=== PATIENT | male | born 1955 | race Caucasian/White ===

== ENCOUNTER 2018-04-19 19:41 | Inpatient (IN) | payer MEDICARE, OTHER ==
[~2018-04-19] VITALS: Ht 185.4 cm; Wt 78.0 kg
[~2018-04-19 19:41] MED LIST: ASPIR 8181 MG ORAL; COREG3.125 MG ORAL; PLAVIX75 MG ORAL; SIMVASTATIN5 MG ORAL
[2018-04-19] MEDS ORDERED: Sodium Chloride 500ML 500 ML IV ONE (19:44)
[2018-04-19] MEDS ORDERED: CELEXA20 MG ORAL (19:47)
[2018-04-19] MEDS ORDERED: BACLOFEN10 MG ORAL (19:47)
[2018-04-19] MEDS ORDERED: HYDROXYZINE PAM50 MG PO (19:47)
[2018-04-19] MEDS ORDERED: ATORVASTATIN CA80 MG ORAL (19:47)
[2018-04-19] MEDS ORDERED: RISPERDAL2 MG ORAL (19:47)
--- NOTE | 2018-04-19 19:59 | Emergency Room Report ---
History of Present Illness General Chief Complaint: Chest Pain Source: Patient Present Illness HPI Patient present with complaints of chest pain midsternal Started approximately 6:00 in the evening about 2 hours prior to arrival Patient reports he was sitting watching TV when the pain came on 7 out of 10 Not much difference or improvement with nitroglycerin in route Patient describes having an angiogram catheterization, 2 years ago and reports that he had blockages however the procedure had to be aborted as they were unable to open the arteries Complains of mild nausea denies any vomiting or diarrhea denies any back or flank pain Denies any other trauma Allergies: Coded Allergies: CHLORPROMAZINE (Verified Allergy, Mild, 04/19/18) HALOPERIDOL (Verified Allergy, Mild, 04/19/18) LIVER EXTRACT (Verified Allergy, Mild, 04/19/18) PENICILLINS (Unverified Allergy, Unknown, 08/05/16) Patient History Past Medical History: see triage record Pertinent Family History: none Reviewed Nursing Documentation: PMH: Agreed; PSxH: Agreed Nursing Documentation-PMH Hx Cardiac Problems: Yes - BYPASS Hx Hypertension: Yes Hx Cancer: No Hx Gastrointestinal Problems: No Hx Seizures: Yes Review of Systems All Other Systems: negative except mentioned in HPI Physical Exam Vital Signs Date Time Temp Pulse Resp B/P (MAP) Pulse Ox O2 Delivery O2 Flow Rate FiO2 04/19/18 19:35 98.2 62 16 85/52 97 Room Air 98.2 Sp02 EP Interpretation: reviewed, normal General Appearance: well appearing, no apparent distress Head: normocephalic, atraumatic Eyes: bilateral eye PERRL, bilateral eye EOMI ENT: hearing grossly normal, normal pharynx, TMs + canals normal, uvula midline Neck: full range of motion, supple, no meningismus, no bony tend Respiratory: lungs clear, normal breath sounds, no rhonchi, no respiratory distress, no retraction, no accessory muscle use Cardiovascular #1: normal peripheral pulses, regular rate, rhythm, no edema, no gallop, no JVD, no murmur Gastrointestinal: normal bowel sounds, non tender, soft, no mass, no organomegaly, non-distended, no guarding, no hernia, no pulsatile mass, no rebound Genitourinary: no CVA tenderness Musculoskeletal: normal inspection Neurologic: oriented x3, responsive, porcelain enameling supervisor III-XII nml as tested, motor strength/ tone normal, sensory intact Psychiatric: mood/affect normal Skin: normal color, no rash, warm/dry, palpation normal Lymphatic: normal inspection, no adenopathy Medical Decision Making Diagnostic Impression: Primary Impression: ACS (acute coronary syndrome) ER Course Patient is a fairly complex patient with multiple differential to consideration including but not limited to cardiac cardiopulmonary and vascular emergencies Patient's initial troponin level is negative EKG does not show any obvious acute ST elevations given the patient's comorbidities past medical history And the presentation patient requiring further admission and inpatient care Labs Test 04/19/18 20:00 04/19/18 21:00 White Blood Count 8.4 K/UL (4.8-10.8) Red Blood Count 4.68 M/UL (4.70-6.10) Hemoglobin 15.4 G/DL (14.2-18.0) Hematocrit 45.3 % (42.0-52.0) Mean Corpuscular Volume 97 FL (80-99) Mean Corpuscular Hemoglobin 32.9 PG (27.0-31.0) Mean Corpuscular Hemoglobin Concent 34.0 G/DL (32.0-36.0) Red Cell Distribution Width 12.8 % (11.6-14.8) Platelet Count 193 K/UL (150-450) Mean Platelet Volume 7.5 FL (6.5-10.1) Neutrophils (%) (Auto) 50.8 % (45.0-75.0) Lymphocytes (%) (Auto) 32.9 % (20.0-45.0) Monocytes (%) (Auto) 8.2 % (1.0-10.0) Eosinophils (%) (Auto) 6.6 % (0.0-3.0) Basophils (%) (Auto) 1.5 % (0.0-2.0) Prothrombin Time 10.7 SEC (9.30-11.50) Prothromb Time International Ratio 1.0 (0.9-1.1) Activated Partial Thromboplast Time 32 SEC (23-33) Sodium Level 134 MMOL/L (136-145) Potassium Level 4.0 MMOL/L (3.5-5.1) Chloride Level 99 MMOL/L (98-107) Carbon Dioxide Level 26 MMOL/L (21-32) Anion Gap 9 mmol/L (5-15) Blood Urea Nitrogen 16 mg/dL (7-18) Creatinine 1.0 MG/DL (0.55-1.30) Estimat Glomerular Filtration Rate > 60 mL/min (>60) Glucose Level 95 MG/DL (74-106) Calcium Level 8.7 MG/DL (8.5-10.1) Total Bilirubin 0.6 MG/DL (0.2-1.0) Aspartate Amino Transf (AST/SGOT) 18 U/L (15-37) Alanine Aminotransferase (ALT/SGPT) 31 U/L (12-78) Alkaline Phosphatase 111 U/L (46-116) Total Creatine Kinase 116 U/L (26-308) Creatine Kinase MB 2.2 NG/ML (0.0-3.6) Creatine Kinase MB Relative Index 1.8 Troponin I 0.000 ng/mL (0.000-0.056) Pro-B-Type Natriuretic Peptide 167 pg/mL (0-125) Total Protein 7.0 G/DL (6.4-8.2) Albumin 3.6 G/DL (3.4-5.0) Globulin 3.4 g/dL Albumin/Globulin Ratio 1.1 (1.0-2.7) Lipase 183 U/L (73-393) Urine Opiates Screen Negative (NEGATIVE) Urine Barbiturates Screen Negative (NEGATIVE) Phencyclidine (PCP) Screen Negative (NEGATIVE) Urine Amphetamines Screen Negative (NEGATIVE) Urine Benzodiazepines Screen Negative (NEGATIVE) Urine Cocaine Screen Negative (NEGATIVE) Urine Marijuana (THC) Screen Positive (NEGATIVE) EKG Diagnostic Results Rate: normal Rhythm: NSR ST Segments: no acute changes Rhythm Strip Diag. Results EP Interpretation: yes Rate: 78 Rhythm: NSR, no PVC's, no ectopy Chest X-Ray Diagnostic Results Chest X-Ray Diagnostic Results : Chest X-Ray Ordered: Yes # of Views/Limited/Complete: 1 View Indication: Chest Pain EP Interpretation: Yes Interpretation: no consolidation, no effusion, no pneumothorax Impression: No acute disease Electronically Signed by: Ángela Bonilla DO Last Vital Signs Date Time Temp Pulse Resp B/P (MAP) Pulse Ox O2 Delivery O2 Flow Rate FiO2 04/19/18 19:35 98.2 62 16 85/52 97 Room Air 98.2 Status: improved Disposition: ADMITTED INPATIENT Condition: Serious Ángela Bonilla DO Apr 19, 2018 19:59
[2018-04-19] MEDS ORDERED: Morphine Sulfate 4mg/ml Inj IVP ONE (20:00)
[2018-04-19 20:16] LABS: BASOPHILS % (AUTO) 1.5 % (0.0-2.0); EOSINOPHILS % (AUTO) 6.6 % (0.0-3.0); HEMATOCRIT 45.3 % (42.0-52.0); HEMOGLOBIN 15.4 G/DL (14.2-18.0); LYMPHOCYTES % (AUTO) 32.9 % (20.0-45.0); MEAN CORPUSCULAR VOLUME 97 FL (80-99); MONOCYTES % (AUTO) 8.2 % (1.0-10.0); NEUTROPHILS % (AUTO) 50.8 % (45.0-75.0); PLATELET COUNT 193 K/UL (150-450); RED BLOOD COUNT 4.68 M/UL (4.70-6.10); RED CELL DISTRIBUTION WIDTH 12.8 % (11.6-14.8); WHITE BLOOD COUNT 8.4 K/UL (4.8-10.8)
[2018-04-19 20:48] LABS: ANION GAP 9 mmol/L (5-15); BLOOD UREA NITROGEN 16 mg/dL (7-18); CALCIUM 8.7 MG/DL (8.5-10.1); CARBON DIOXIDE 26 MMOL/L (21-32); CHLORIDE 99 MMOL/L (98-107); SODIUM 134 MMOL/L (136-145)
[2018-04-19] MEDS ORDERED: ATORVASTATIN CA40 MG ORAL (20:58)
[2018-04-19] MEDS ORDERED: METOPROLOL TART25 MG ORAL (21:03)
[2018-04-19] MEDS ORDERED: GABAPENTIN300 MG ORAL (21:03)
[2018-04-19] MEDS ORDERED: HYTRIN5 MG PO (21:03)
[2018-04-19] MEDS ORDERED: OMEPRAZOLE20 M2 ORAL (21:03)
[2018-04-19] MEDS ORDERED: CITALOPRAM HBR40 M1 ORAL (21:03)
[2018-04-19] MEDS ORDERED: ENTRESTO 24 MG1 EACH PO (21:03)
[2018-04-19] MEDS ORDERED: AMLODIPINE BES2.5 MG ORAL (21:04)
[2018-04-19] MEDS ORDERED: LORazepam Inj 2mg/ml 1ml IV ONE (21:15)
[2018-04-19 21:18] LABS: ALANINE AMINOTRANSFERASE 31 U/L (12-78); ALBUMIN 3.6 G/DL (3.4-5.0); ALBUMIN/GLOBULIN RATIO 1.1 (1.0-2.7); ALKALINE PHOSPHATASE 111 U/L (46-116); ASPARTATE AMINO TRANSFERASE 18 U/L (15-37); BILIRUBIN,TOTAL 0.6 MG/DL (0.2-1.0); CKMB 2.2 NG/ML (0.0-3.6); CREATINE KINASE 116 U/L (26-308)
[2018-04-19 21:40] VITALS: BP 105/59
[2018-04-19] MEDS ORDERED: Albuterol/Ipratropium 3ml neb HHN PRN (22:15)
[2018-04-19] MEDS ORDERED: Miralax 17gm pkt ORAL PRN (22:15)
[2018-04-19] MEDS ORDERED: Ketorolac 30mg Inj IV PRN (22:15)
[2018-04-19] MEDS ORDERED: dilTIAZem HCl 25mg/5ml Inj IV PRN (22:15)
[2018-04-19] MEDS ORDERED: Enalaprilat 2.5mg/2ml Inj IV PRN (22:15)
[2018-04-19 22:45] VITALS: BP 91/56
[2018-04-20] VITALS: BP 88/47
[2018-04-20] MEDS: Morphine Sulfate 4mg/ml Inj IVP PRN ×3 (00:29→16:09)
[2018-04-20 04:00] VITALS: BP 79/40
[2018-04-20 08:00] VITALS: BP 111/53
[2018-04-20] MEDS: Metoprolol 25mg tab ORAL SCH ×2 (09:00→20:41)
[2018-04-20] MEDS: Atorvastatin 80mg tab ORAL SCH (09:14)
[2018-04-20] MEDS: Aspirin Baby 81mg ORAL SCH (09:14)
[2018-04-20] MEDS: Heparin 5000 units/ml inj SUBQ SCH ×2 (09:18→20:54)
[2018-04-20 10:04] LABS: BASOPHILS % (AUTO) 1.1 % (0.0-2.0); EOSINOPHILS % (AUTO) 4.8 % (0.0-3.0); HEMATOCRIT 45.2 % (42.0-52.0); LYMPHOCYTES % (AUTO) 22.2 % (20.0-45.0); MEAN CORPUSCULAR VOLUME 96 FL (80-99); MONOCYTES % (AUTO) 7.2 % (1.0-10.0); NEUTROPHILS % (AUTO) 64.7 % (45.0-75.0); PLATELET COUNT 171 K/UL (150-450); RED BLOOD COUNT 4.69 M/UL (4.70-6.10); RED CELL DISTRIBUTION WIDTH 12.5 % (11.6-14.8); WHITE BLOOD COUNT 8.9 K/UL (4.8-10.8)
[2018-04-20 10:23] LABS: CHOLESTEROL 115 MG/DL (< 200); HDL CHOLESTEROL 40 MG/DL (40-60); TRIGLYCERIDES 49 MG/DL (30-150)
--- NOTE | 2018-04-20 11:57 | Diagnostic Imaging Report ---
Indication: Chest pain Technique: One view of the chest Comparison: 08/04/2016 Findings: There are median sternotomy sutures. Surgical clips are seen in the left hilar region. Heart size is normal. Healed right rib fracture deformity are present, not acute but not evident previously Impression: No acute process
[2018-04-20 12:00] VITALS: BP 92/52
--- NOTE | 2018-04-20 13:14 | Consultation ---
History of Present Illness General Date patient seen: Apr 20, 2018 Chief Complaint: Chest Pain Present Illness HPI 62 year old male with hx of CAD, CABG 20 years ago presented to ER with complaints of chest pain midsternal about 2 hours prior to arrival to ER Patient had angiogram catheterization, 2 years ago and reports that he had blockages however the procedure had to be aborted as they were unable to open the arteries He is admitted to telemetry for further w/u. Allergies: Coded Allergies: CHLORPROMAZINE (Verified Allergy, Mild, 04/19/18) HALOPERIDOL (Verified Allergy, Mild, 04/19/18) LIVER EXTRACT (Verified Allergy, Mild, 04/19/18) PENICILLINS (Unverified Allergy, Unknown, 08/05/16) Medication History Scheduled Amlodipine Besylate* (Amlodipine Besylate*), 2.5 MG ORAL DAILY, (Reported) Aspirin* (Aspir 81*), 81 MG ORAL DAILY, (Reported) Atorvastatin Calcium* (Atorvastatin Calcium*), 40 MG ORAL DAILY, (Reported) Citalopram Hydrobromide* (Citalopram Hbr*), 40 MG ORAL DAILY, (Reported) Clopidogrel Bisulfate* (Plavix*), 75 MG ORAL DAILY, (Reported) Gabapentin* (Gabapentin*), 300 MG ORAL TWICE A DAY, (Reported) Metoprolol Tartrate* (Metoprolol Tartrate*), 25 MG ORAL EVERY 12 HOURS, ( Reported) Omeprazole (Omeprazole), 20 MG ORAL BID, (Reported) Risperidone* (Risperdal*), 2 MG ORAL BID, (Reported) Terazosin HCl (Terazosin HCl), 5 MG PO QHS, (Reported) Miscellaneous Medications Sacubitril/Valsartan (Entresto 24 mg-26 mg Tablet), 1 EACH PO, (Reported) Discontinued Medications Atorvastatin Calcium* (Lipitor*), 80 MG ORAL BEDTIME, (Reported) Discontinued Reason: Prescription changed Baclofen* (Baclofen*), 5 MG ORAL THREE TIMES A DAY, (Reported) Discontinued Reason: Pt stopped taking med Carvedilol (Coreg), Unknown Dose ORAL DAILY, (Reported) Discontinued Reason: Pt stopped taking med Citalopram Hydrobromide* (Celexa*), 20 MG ORAL DAILY, (Reported) Discontinued Reason: Prescription changed Hydroxyzine Pamoate (Hydroxyzine Pamoate), 50 MG PO EVERY 6 HOURS, (Reported) Discontinued Reason: Pt stopped taking med Simvastatin (Zocor), Unknown Dose ORAL BEDTIME, (Reported) Discontinued Reason: Pt stopped taking med Patient History Healthcare decision maker Kit Fierro Resuscitation status Full Code Advanced Directive on File No Past Medical/Surgical History Past Medical/Surgical History: (1) Hx of CABG (2) COPD (chronic obstructive pulmonary disease) (3) CAD (coronary artery disease) Review of Systems All Other Systems: negative except mentioned in HPI Physical Exam General Appearance: WD/WN, no apparent distress, alert Lines, tubes and drains: peripheral HEENT: normocephalic, atraumatic Neck: non-tender, normal alignment Respiratory/Chest: chest wall non-tender, lungs clear, normal breath sounds Breasts: no masses Cardiovascular/Chest: normal peripheral pulses, normal rate, regular rhythm Abdomen: normal bowel sounds, soft, no organomegaly Genitourinary/Rectal: normal genital exam Extremities: normal range of motion Skin Exam: normal pigmentation Last 24 Hour Vital Signs Date Time Temp Pulse Resp B/P (MAP) Pulse Ox O2 Delivery O2 Flow Rate FiO2 04/20/18 12:00 97.5 55 20 92/52 98 Nasal Cannula 2.0 97.5 04/20/18 09:52 97.8 04/20/18 09:22 97.8 04/20/18 09:13 54 111/53 04/20/18 09:00 54 111/53 04/20/18 08:20 89 18 Nasal Cannula 2.0 28 04/20/18 08:00 97.8 54 21 111/53 95 Nasal Cannula 2.0 97.8 04/20/18 08:00 55 04/20/18 04:00 97.3 59 21 79/40 95 Nasal Cannula 2.0 97.3 04/20/18 04:00 52 04/20/18 00:00 50 04/20/18 00:00 97.0 50 19 88/47 97 Nasal Cannula 2.0 97.0 04/19/18 22:45 51 04/19/18 22:45 97.2 51 21 91/56 97 Nasal Cannula 2.0 97.2 04/19/18 22:40 97.1 50 13 105/59 97 Nasal Cannula 2.0 97.1 04/19/18 21:40 97.1 50 13 105/59 97 Nasal Cannula 2.0 97.1 04/19/18 20:35 98.2 04/19/18 20:05 98.2 04/19/18 19:45 62 16 Room Air 04/19/18 19:35 98.2 62 16 85/52 97 Room Air 98.2 Intake and Output 04/19/18 04/20/18 19:00 07:00 Intake Total 500 ml Output Total 110 ml Balance 390 ml Intake IV Total 500 ml Output Urine Total 110 ml # Voids 3 Laboratory Tests Test 04/19/18 20:00 04/19/18 21:00 04/20/18 09:40 White Blood Count 8.4 K/UL (4.8-10.8) 8.9 K/UL (4.8-10.8) Red Blood Count 4.68 M/UL (4.70-6.10) L 4.69 M/UL (4.70-6.10) L Hemoglobin 15.4 G/DL (14.2-18.0) 15.0 G/DL (14.2-18.0) Hematocrit 45.3 % (42.0-52.0) 45.2 % (42.0-52.0) Mean Corpuscular Volume 97 FL (80-99) 96 FL (80-99) Mean Corpuscular Hemoglobin 32.9 PG (27.0-31.0) H 31.9 PG (27.0-31.0) H Mean Corpuscular Hemoglobin Concent 34.0 G/DL (32.0-36.0) 33.1 G/DL (32.0-36.0) Red Cell Distribution Width 12.8 % (11.6-14.8) 12.5 % (11.6-14.8) Platelet Count 193 K/UL (150-450) 171 K/UL (150-450) Mean Platelet Volume 7.5 FL (6.5-10.1) 7.8 FL (6.5-10.1) Neutrophils (%) (Auto) 50.8 % (45.0-75.0) 64.7 % (45.0-75.0) Lymphocytes (%) (Auto) 32.9 % (20.0-45.0) 22.2 % (20.0-45.0) Monocytes (%) (Auto) 8.2 % (1.0-10.0) 7.2 % (1.0-10.0) Eosinophils (%) (Auto) 6.6 % (0.0-3.0) H 4.8 % (0.0-3.0) H Basophils (%) (Auto) 1.5 % (0.0-2.0) 1.1 % (0.0-2.0) Prothrombin Time 10.7 SEC (9.30-11.50) 10.7 SEC (9.30-11.50) Prothromb Time International Ratio 1.0 (0.9-1.1) 1.0 (0.9-1.1) Activated Partial Thromboplast Time 32 SEC (23-33) 31 SEC (23-33) Sodium Level 134 MMOL/L (136-145) L Potassium Level 4.0 MMOL/L (3.5-5.1) Chloride Level 99 MMOL/L (98-107) Carbon Dioxide Level 26 MMOL/L (21-32) Anion Gap 9 mmol/L (5-15) Blood Urea Nitrogen 16 mg/dL (7-18) Creatinine 1.0 MG/DL (0.55-1.30) Estimat Glomerular Filtration Rate > 60 mL/min (>60) Glucose Level 95 MG/DL (74-106) Calcium Level 8.7 MG/DL (8.5-10.1) Total Bilirubin 0.6 MG/DL (0.2-1.0) Aspartate Amino Transf (AST/SGOT) 18 U/L (15-37) Alanine Aminotransferase (ALT/SGPT) 31 U/L (12-78) Alkaline Phosphatase 111 U/L (46-116) Total Creatine Kinase 116 U/L (26-308) Creatine Kinase MB 2.2 NG/ML (0.0-3.6) Creatine Kinase MB Relative Index 1.8 Troponin I 0.000 ng/mL (0.000-0.056) 0.003 ng/mL (0.000-0.056) Pro-B-Type Natriuretic Peptide 167 pg/mL (0-125) H Total Protein 7.0 G/DL (6.4-8.2) Albumin 3.6 G/DL (3.4-5.0) Globulin 3.4 g/dL Albumin/Globulin Ratio 1.1 (1.0-2.7) Lipase 183 U/L (73-393) Urine Opiates Screen Negative (NEGATIVE) Urine Barbiturates Screen Negative (NEGATIVE) Phencyclidine (PCP) Screen Negative (NEGATIVE) Urine Amphetamines Screen Negative (NEGATIVE) Urine Benzodiazepines Screen Negative (NEGATIVE) Urine Cocaine Screen Negative (NEGATIVE) Urine Marijuana (THC) Screen Positive (NEGATIVE) H C-Reactive Protein, Quantitative < 0.4 mg/dL (0.00-0.90) Triglycerides Level 49 MG/DL (30-150) Cholesterol Level 115 MG/DL (< 200) LDL Cholesterol 83 mg/dL (<100) HDL Cholesterol 40 MG/DL (40-60) Cholesterol/HDL Ratio 2.9 (3.3-4.4) L Thyroid Stimulating Hormone (TSH) 3.354 uiU/mL (0.358-3.740) Height (Feet): 6 Height (Inches): 1.00 Weight (Pounds): 172 Medications Current Medications Medications (Trade) Dose Ordered Sig/Michael Route PRN Reason Start Time Stop Time Status Last Admin Dose Admin Acetaminophen (Tylenol) 650 mg Q4H PRN ORAL FEVER 04/19/18 22:15 05/19/18 22:14 Albuterol/ Ipratropium (Albuterol/ Ipratropium) 3 ml EVERY 4 HOURS PRN HHN Shortness of Breath 04/19/18 22:15 04/24/18 22:14 Amlodipine Besylate (Norvasc) 2.5 mg DAILY ORAL 04/20/18 09:00 05/20/18 08:59 04/20/18 09:13 Aspirin (ASA) 162 mg DAILY ORAL 04/20/18 09:00 05/20/18 08:59 04/20/18 09:14 Atorvastatin Calcium (Lipitor) 40 mg DAILY ORAL 04/20/18 09:00 05/20/18 08:59 04/20/18 09:14 Clopidogrel Bisulfate (Plavix) 75 mg DAILY ORAL 04/20/18 09:00 05/20/18 08:59 04/20/18 09:13 Diltiazem HCl (Cardizem) 10 mg EVERY HOUR PRN IV heart rate more than 120, 04/19/18 22:15 05/19/18 22:14 Enalaprilat (Vasotec) 2.5 mg EVERY 6 HOURS PRN IV sbp more than 160 04/19/18 22:15 05/19/18 22:14 Gabapentin (Neurontin) 300 mg TWICE A DAY ORAL 04/20/18 09:00 05/20/18 08:59 04/20/18 09:15 Heparin Sodium (Porcine) (Heparin 5000 units/ml) 5,000 units EVERY 12 HOURS SUBQ 04/20/18 09:00 05/20/18 08:59 04/20/18 09:18 Ketorolac Tromethamine (Toradol 30mg) 30 mg Q6HR PRN IV moderate pain ( 4-6) 04/19/18 22:15 04/24/18 22:14 Metoprolol Tartrate (Lopressor) 25 mg EVERY 12 HOURS ORAL 04/20/18 09:00 05/20/18 08:59 Morphine Sulfate (Morphine Sulfate) 2 mg Q4H PRN IVP severe pain scale 7-10 04/19/18 22:45 04/26/18 22:44 04/20/18 09:22 Nitroglycerin (Ntg) 0.4 mg Q5M PRN SL Prn Chest Pain 04/19/18 22:15 05/19/18 22:14 Ondansetron HCl (Zofran) 4 mg Q6H PRN IVP Nausea & Vomiting 04/19/18 22:15 05/19/18 22:14 Polyethylene Glycol (Miralax) 17 gm DAILYPRN PRN ORAL Constipation 04/19/18 22:15 05/19/18 22:14 Risperidone (RisperDAL) 2 mg BID ORAL 04/20/18 09:00 05/20/18 08:59 04/20/18 09:14 Temazepam (Restoril) 15 mg HSPRN PRN ORAL Insomnia 04/19/18 22:15 04/26/18 22:14 04/20/18 00:53 Terazosin HCl (Hytrin) 5 mg QHS ORAL 04/20/18 21:00 05/20/18 20:59 Assessment/Plan Problem List: (1) Acute chest pain ICD Codes: R07.9 - Chest pain, unspecified SNOMED: 244114284 (2) ACS (acute coronary syndrome) ICD Codes: I24.9 - Acute ischemic heart disease, unspecified SNOMED: 850925583 (3) COPD (chronic obstructive pulmonary disease) ICD Codes: J44.9 - Chronic obstructive pulmonary disease, unspecified SNOMED: 19473626 (4) CAD (coronary artery disease) ICD Codes: I25.10 - Atherosclerotic heart disease of [place] coronary artery without angina pectoris SNOMED: 98866812 (5) Hx of CABG ICD Codes: Z95.1 - Presence of aortocoronary bypass graft SNOMED: 799754455, 558618096 Assessment/Plan serial ekg, torponin, echo cardio evaluation symptomatic treatment Donta Espinoza MD Apr 20, 2018 13:14
[2018-04-20 16:00] VITALS: BP 104/63
--- NOTE | 2018-04-20 17:30 | History and Physical Report ---
DATE OF ADMISSION: 04/19/2018 TIME: 9 a.m. CONSULTANTS: 1. Donta Espinoza M.D. 2. Henry Rubin M.D. CHIEF COMPLAINT: Chest pain. BRIEF HISTORY: The patient is a 62-year-old male from [facility] presents with substernal chest pain, yesterday, sharp, intermittent, radiating to left arm, lasts for several hours, came to [place], diagnosed with the above, admitted to telemetry for further care. Currently, calm, in bed. No complaint. Also he denies any loss of consciousness. Slight nausea. No vomiting. PAST MEDICAL HISTORY: Hypertension. PAST SURGICAL HISTORY: Triple bypass. MEDICATIONS: Hytrin, Norvasc, Lipitor, Plavix, Neurontin, Lopressor, Risperdal, aspirin, heparin, albuterol, nitroglycerin, MiraLAX, Ketoralac, Restoril, Vasotec and diltiazem. ALLERGIES: Penicillin. He is also allergic to chlorpromazine and Haldol and liver extract. SOCIAL HISTORY: Positive smoking. No alcohol. No intravenous drug abuse. FAMILY HISTORY: Noncontributory. PHYSICAL EXAMINATION: GENERAL: Calm in bed, oriented x3, no acute distress. VITAL SIGNS: Temperature 97 degrees, pulse 54, respirations 21, and blood pressure 111/53. CARDIOVASCULAR: No murmur. LUNGS: Distant and clear. ABDOMEN: Bowel sounds positive. Nontender. Nondistended. EXTREMITIES: No cyanosis, clubbing or edema. NEUROLOGIC: The patient moves all extremities, slightly weak. LABORATORY AND DIAGNOSTIC DATA: CBC is normal. BMP shows sodium 134, otherwise BMP is normal. Troponin 0.000 on first one. BNP is 167. INR is 1.0 and PTT is 31. Urine toxicology is positive marijuana. ASSESSMENT: 1. ACS. 2. Hypertension. PLAN: Blood pressure control. Resume home medications. Troponin q.8 h. x3. O2 and pulmonary treatment as needed. Dr. Espinoza and Dr. Rubin to follow. Marcel Nicole D.O. DR: YESENIA JOB#: [id number] CC:
[2018-04-20 20:00] VITALS: BP 110/63
--- NOTE | 2018-04-20 20:08 | Cardiology Progress Note ---
Assessment/Plan Assessment/Plan chest pain atypical no sig myonecrosis despite more than 24 hour of cp cad with knwo nursing program director or rca and cx (faile pcie attempt to nursing program director of om ) , patent lad stent 01/2018 icm tobacco use do schizophrenia no sig myonecoris repeat on emore trop tonit ekg unchanged recent cath pci a t lizette reviewed scar in rca territory on pet but no cx but failed pci attempt of nursing program director om he feel morphine helpfull but not at 2 mg rather 4 mg ntg not very heopfull keep on meds isordil and renexa he may have csa however not likley timothy present pain is related to acs if trop neg may dc home on bb, asa plavix , ranexa and imdur [id number] Objective Last 24 Hour Vital Signs Date Time Temp Pulse Resp B/P (MAP) Pulse Ox O2 Delivery O2 Flow Rate FiO2 04/20/18 17:53 63 04/20/18 16:39 97.5 04/20/18 16:00 97.7 60 22 104/63 93 Nasal Cannula 2.0 97.7 04/20/18 12:00 53 04/20/18 12:00 97.5 55 20 92/52 98 Nasal Cannula 2.0 97.5 04/20/18 09:22 97.8 04/20/18 09:13 54 111/53 04/20/18 09:00 54 111/53 04/20/18 08:20 89 18 Nasal Cannula 2.0 28 04/20/18 08:00 97.8 54 21 111/53 95 Nasal Cannula 2.0 97.8 04/20/18 08:00 55 04/20/18 04:00 97.3 59 21 79/40 95 Nasal Cannula 2.0 97.3 04/20/18 04:00 52 04/20/18 00:00 50 04/20/18 00:00 97.0 50 19 88/47 97 Nasal Cannula 2.0 97.0 04/19/18 22:45 51 04/19/18 22:45 97.2 51 21 91/56 97 Nasal Cannula 2.0 97.2 04/19/18 22:40 97.1 50 13 105/59 97 Nasal Cannula 2.0 97.1 04/19/18 21:40 97.1 50 13 105/59 97 Nasal Cannula 2.0 97.1 04/19/18 20:35 98.2 04/19/18 20:05 98.2 Intake and Output 04/19/18 04/20/18 19:00 07:00 Intake Total 500 ml Output Total 110 ml Balance 390 ml Intake IV Total 500 ml Output Urine Total 110 ml # Voids 3 Laboratory Tests Test 04/19/18 21:00 04/20/18 09:40 Urine Opiates Screen Negative (NEGATIVE) Urine Barbiturates Screen Negative (NEGATIVE) Phencyclidine (PCP) Screen Negative (NEGATIVE) Urine Amphetamines Screen Negative (NEGATIVE) Urine Benzodiazepines Screen Negative (NEGATIVE) Urine Cocaine Screen Negative (NEGATIVE) Urine Marijuana (THC) Screen Positive (NEGATIVE) H White Blood Count 8.9 K/UL (4.8-10.8) Red Blood Count 4.69 M/UL (4.70-6.10) L Hemoglobin 15.0 G/DL (14.2-18.0) Hematocrit 45.2 % (42.0-52.0) Mean Corpuscular Volume 96 FL (80-99) Mean Corpuscular Hemoglobin 31.9 PG (27.0-31.0) H Mean Corpuscular Hemoglobin Concent 33.1 G/DL (32.0-36.0) Red Cell Distribution Width 12.5 % (11.6-14.8) Platelet Count 171 K/UL (150-450) Mean Platelet Volume 7.8 FL (6.5-10.1) Neutrophils (%) (Auto) 64.7 % (45.0-75.0) Lymphocytes (%) (Auto) 22.2 % (20.0-45.0) Monocytes (%) (Auto) 7.2 % (1.0-10.0) Eosinophils (%) (Auto) 4.8 % (0.0-3.0) H Basophils (%) (Auto) 1.1 % (0.0-2.0) Prothrombin Time 10.7 SEC (9.30-11.50) Prothromb Time International Ratio 1.0 (0.9-1.1) Activated Partial Thromboplast Time 31 SEC (23-33) Troponin I 0.003 ng/mL (0.000-0.056) C-Reactive Protein, Quantitative < 0.4 mg/dL (0.00-0.90) Triglycerides Level 49 MG/DL (30-150) Cholesterol Level 115 MG/DL (< 200) LDL Cholesterol 83 mg/dL (<100) HDL Cholesterol 40 MG/DL (40-60) Cholesterol/HDL Ratio 2.9 (3.3-4.4) L Thyroid Stimulating Hormone (TSH) 3.354 uiU/mL (0.358-3.740) Rajendra Mccartney MD Apr 20, 2018 20:08
[2018-04-20] MEDS: Ranolazine 500mg tab ORAL SCH (21:04)
--- NOTE | 2018-04-20 23:59 | Cardiology Progress Note ---
Objective Last 24 Hour Vital Signs Date Time Temp Pulse Resp B/P (MAP) Pulse Ox O2 Delivery O2 Flow Rate FiO2 04/20/18 21:02 68 18 Room Air 04/20/18 20:41 53 110/63 04/20/18 20:00 53 04/20/18 20:00 97.5 61 20 110/63 99 Nasal Cannula 2.0 97.5 04/20/18 17:53 63 04/20/18 16:39 97.5 04/20/18 16:00 97.7 60 22 104/63 93 Nasal Cannula 2.0 97.7 04/20/18 12:00 53 04/20/18 12:00 97.5 55 20 92/52 98 Nasal Cannula 2.0 97.5 04/20/18 09:22 97.8 04/20/18 09:13 54 111/53 04/20/18 09:00 54 111/53 04/20/18 08:20 89 18 Nasal Cannula 2.0 28 04/20/18 08:00 97.8 54 21 111/53 95 Nasal Cannula 2.0 97.8 04/20/18 08:00 55 04/20/18 04:00 97.3 59 21 79/40 95 Nasal Cannula 2.0 97.3 04/20/18 04:00 52 04/20/18 00:00 50 04/20/18 00:00 97.0 50 19 88/47 97 Nasal Cannula 2.0 97.0 Intake and Output 04/19/18 04/20/18 19:00 07:00 Intake Total 500 ml Output Total 110 ml Balance 390 ml Intake IV Total 500 ml Output Urine Total 110 ml # Voids 3 Laboratory Tests Test 04/20/18 09:40 04/20/18 20:15 White Blood Count 8.9 K/UL (4.8-10.8) Red Blood Count 4.69 M/UL (4.70-6.10) L Hemoglobin 15.0 G/DL (14.2-18.0) Hematocrit 45.2 % (42.0-52.0) Mean Corpuscular Volume 96 FL (80-99) Mean Corpuscular Hemoglobin 31.9 PG (27.0-31.0) H Mean Corpuscular Hemoglobin Concent 33.1 G/DL (32.0-36.0) Red Cell Distribution Width 12.5 % (11.6-14.8) Platelet Count 171 K/UL (150-450) Mean Platelet Volume 7.8 FL (6.5-10.1) Neutrophils (%) (Auto) 64.7 % (45.0-75.0) Lymphocytes (%) (Auto) 22.2 % (20.0-45.0) Monocytes (%) (Auto) 7.2 % (1.0-10.0) Eosinophils (%) (Auto) 4.8 % (0.0-3.0) H Basophils (%) (Auto) 1.1 % (0.0-2.0) Prothrombin Time 10.7 SEC (9.30-11.50) Prothromb Time International Ratio 1.0 (0.9-1.1) Activated Partial Thromboplast Time 31 SEC (23-33) Troponin I 0.003 ng/mL (0.000-0.056) 0.004 ng/mL (0.000-0.056) C-Reactive Protein, Quantitative < 0.4 mg/dL (0.00-0.90) Triglycerides Level 49 MG/DL (30-150) Cholesterol Level 115 MG/DL (< 200) LDL Cholesterol 83 mg/dL (<100) HDL Cholesterol 40 MG/DL (40-60) Cholesterol/HDL Ratio 2.9 (3.3-4.4) L Thyroid Stimulating Hormone (TSH) 3.354 uiU/mL (0.358-3.740) Henry Rubin MD Apr 20, 2018 23:59
[2018-04-21] VITALS: BP 122/69
--- NOTE | 2018-04-21 | Consultation ---
DATE OF CONSULTATION: 04/20/2018 CARDIOLOGY CONSULTATION CONSULTING PHYSICIAN: Rajendra Mccartney M.D. REFERRING PHYSICIANS: Donta Espinoza M.D. and Marcel Nicole M.D. REASON FOR REFERRAL: Chest pain. HISTORY OF PRESENT ILLNESS: This is a very unfortunate middle-aged gentleman, who is usually follows up at the [facility], who presented to the hospital because of chest pain that started occurring as of last evening about 6 o'clock. Over the past 24 hours, he has had the pain off and on. Most of the time the pain is on, rather than being off. He really has not noticed any relieving or exacerbating factors. The description is a sharp, stabbing kind of pain as he describes it. Otherwise, he has not noticed any relieving or exacerbating factors. He does indicate that he has had a bypass surgery 20 years ago, three vessels. Subsequently, he has had several other percutaneous coronary interventions, last one an attempt apparently number of years ago at [facility] that resulted in just an angioplasty, no stents being placed. He has had three prior stents after the bypass surgery done between [facility] and other places. His [facility] data was reviewed and it looks like he has had a history of chest pain, for which he was hospitalized in 03/27/2018 at [facility] and [facility] data reviewed. He had a cardiac catheterization at [facility] in January 2018, two vessel coronary artery disease, patent stent in the mid left anterior descending artery, normal left ventricular systolic function, and had an attempt at percutaneous intervention of the second obtuse marginal artery with chronic total occlusion that apparently failed and it was aborted and the patient has been treated medically. He has had repeat hospitalization at [facility] more recently, in which he underwent PET perfusion imaging. He had a PET perfusion imaging in 01/2018 that showed 13% scar in the right coronary artery involving the inferior and inferolateral marin. No mismatch defect was noted on that study and his perfusion imaging last was performed in August 2017. At that time, it had shown 9% reversible and 15% fixed. PAST MEDICAL HISTORY: Other medical problems include hypertension, schizophrenia, and unfortunately active tobacco use disorder and prostatic enlargement. No cancer. No stroke. No hepatitis or tuberculosis. ALLERGIES: He is allergic to penicillin. SOCIAL HISTORY: He smokes cigarettes. He states he does not use drugs or drink alcoholic beverages. He lives at a [facility] and he receives his care through the [facility]. REVIEW OF SYSTEMS: GASTROINTESTINAL: Negative. GENITOURINARY: Negative except for multiple nocturia episodes. PULMONARY: He has had some coughing and wheezing since being admitted. CONSTITUTIONAL: Denies. NEUROLOGIC: Denies. PHYSICAL EXAMINATION: GENERAL: Shows to be elderly gentleman, in no respiratory distress, has nasal voice. NECK: Supple. No jugular venous distention. LUNGS: Some expiratory and inspiratory wheezes are noted. No crackles. CARDIAC: Regular rate and rhythm. No heaves or thrills noted. ABDOMEN: Soft and nontender. Positive bowel sounds. No hepatosplenomegaly. EXTREMITIES: There is no clubbing, cyanosis, nor is there any edema. NEUROLOGICAL: He is awake, alert, responsive, and in no apparent distress. LABORATORY AND DIAGNOSTIC DATA: He has an EKG that shows basically sinus rhythm with normal QRS axis. He does have some T-wave inversions in II, III and aVF and direct comparison with the EKGs performed at [facility], last in March of 2018. The electrocardiographic changes in the inferior wall were present previously as well. Labs, white count 8.9, hemoglobin 15, and platelet count of 171. Sodium is 134, potassium 4.0, chloride 99, bicarbonate 26, BUN 16, creatinine 1.0, and glucose of 95. Liver function tests appeared to be normal. Total cholesterol 115, LDL of 83, and HDL of 43. TSH of 3.34. Troponin on two separate occasions 0.000 and 0.003, both of those are normal and a chest x-ray performed yesterday showed no acute processes. ASSESSMENT AND PLAN: 1. Chest pain, atypical, persistent for the past 24 hours. 2. Known coronary artery disease with [employer] LIBR[employer]IAN of the right coronary artery and obtuse marginal that were collateralized and unchanged from prior CT a year earlier. PET scan showed a viability scar in the right coronary artery territory of 30%. No mismatched area of viability in the other vessels was noted. The patient was not able to have an MRI at that time and basically has been treated medically. Obtuse marginal and right coronary artery with patent left anterior descending artery with a failed attempt at angioplasty of the OM lesion. The patient has been treated medically. His cardiac enzymes are so far appeared to be relatively negative. He should have a third one done. His pain is rather atypical for the fact that he has had this chest pain for most of the time for the past 24 hours and yet has no significant troponin leak, may be suggestive that this is probably not an ischemic pain. Description of the pain also does not go along with an ischemic pain. He does seem to think that the morphine is the only medication that helps him and the nitroglycerin has not been helpful and he believes that morphine 4 mg has more so helped than the 2 mg. In light of the fact that he has had previous attempts at angioplasty and then the fact that he does not have any myonecrosis, I do not favor any further testing at this time. He is to continue with medications that he was taking prior to admission including Ranexa, Imdur, Toprol-XL, aspirin, Lipitor and Plavix to be continued. I have discussed with him smoking cessation again and Liliana mills to proceed in that direction. He receives his care at the [facility]. He is more than welcome to follow up with me if should he decide otherwise. Rajendra Mccartney M.D. DR: JENNIE JOB#: [id number] CC:
[2018-04-21 04:00] VITALS: BP 97/57
[2018-04-21 08:00] VITALS: BP 126/60
[2018-04-21] MEDS: Heparin 5000 units/ml inj SUBQ SCH ×2 (09:00→21:04)
[2018-04-21] MEDS: Aspirin Baby 81mg ORAL SCH (09:08)
[2018-04-21] MEDS: Metoprolol 25mg tab ORAL SCH ×2 (09:09→21:00)
[2018-04-21] MEDS: Ranolazine 500mg tab ORAL SCH ×2 (09:09→21:03)
[2018-04-21] MEDS: Atorvastatin 80mg tab ORAL SCH (09:09)
[2018-04-21] MEDS: Morphine Sulfate 4mg/ml Inj IVP PRN ×2 (09:13→16:07)
[2018-04-21 09:35] LABS: BASOPHILS % (AUTO) 1.3 % (0.0-2.0); EOSINOPHILS % (AUTO) 6.4 % (0.0-3.0); HEMATOCRIT 46.8 % (42.0-52.0); HEMOGLOBIN 15.5 G/DL (14.2-18.0); LYMPHOCYTES % (AUTO) 26.7 % (20.0-45.0); MEAN CORPUSCULAR VOLUME 97 FL (80-99); MONOCYTES % (AUTO) 8.7 % (1.0-10.0); NEUTROPHILS % (AUTO) 56.9 % (45.0-75.0); PLATELET COUNT 177 K/UL (150-450); RED BLOOD COUNT 4.82 M/UL (4.70-6.10); RED CELL DISTRIBUTION WIDTH 12.9 % (11.6-14.8); WHITE BLOOD COUNT 6.8 K/UL (4.8-10.8)
[2018-04-21 09:49] LABS: ANION GAP 7 mmol/L (5-15); BLOOD UREA NITROGEN 11 mg/dL (7-18); CALCIUM 8.7 MG/DL (8.5-10.1); CARBON DIOXIDE 29 MMOL/L (21-32); CHLORIDE 102 MMOL/L (98-107); CREATININE 0.9 MG/DL (0.55-1.30); SODIUM 138 MMOL/L (136-145)
--- NOTE | 2018-04-21 10:20 | General Progress Note ---
Assessment/Plan Problem List: (1) HTN (hypertension) ICD Codes: I10 - Essential (primary) hypertension SNOMED: 77250893 (2) ACS (acute coronary syndrome) ICD Codes: I24.9 - Acute ischemic heart disease, unspecified SNOMED: 752291775 (3) Anxiety ICD Codes: F41.9 - Anxiety disorder, unspecified SNOMED: 09314896 Status: stable, progressing Assessment/Plan o2 pulm tx pain control cardio f/u cbc bmp am Subjective Constitutional: Reports: weakness Allergies: Coded Allergies: CHLORPROMAZINE (Verified Allergy, Mild, 04/19/18) HALOPERIDOL (Verified Allergy, Mild, 04/19/18) LIVER EXTRACT (Verified Allergy, Mild, 04/19/18) PENICILLINS (Unverified Allergy, Unknown, 08/05/16) All Systems: reviewed and negative except above Subjective sleepy calm in bed Objective Last 24 Hour Vital Signs Date Time Temp Pulse Resp B/P (MAP) Pulse Ox O2 Delivery O2 Flow Rate FiO2 04/21/18 09:47 74 18 Room Air 04/21/18 09:09 70 124/60 04/21/18 08:00 51 04/21/18 08:00 97.5 77 20 126/60 95 Room Air 97.5 04/21/18 04:00 52 04/21/18 04:00 98.1 69 20 97/57 94 Room Air 98.1 04/21/18 00:00 98.1 58 20 122/69 98 Room Air 98.1 04/21/18 00:00 54 04/20/18 21:02 68 18 Room Air 04/20/18 20:41 53 110/63 04/20/18 20:00 53 04/20/18 20:00 97.5 61 20 110/63 99 Nasal Cannula 2.0 97.5 04/20/18 17:53 63 04/20/18 16:39 97.5 04/20/18 16:00 97.7 60 22 104/63 93 Nasal Cannula 2.0 97.7 04/20/18 12:00 53 04/20/18 12:00 97.5 55 20 92/52 98 Nasal Cannula 2.0 97.5 Intake and Output 04/20/18 04/21/18 19:00 07:00 Output Total 110 ml Balance -110 ml Output Urine Total 110 ml # Voids 2 # Bowel Movements 3 6 Laboratory Tests 04/20/18 20:15: Troponin I 0.004 04/21/18 09:05: White Blood Count 6.8, Red Blood Count 4.82, Hemoglobin 15.5, Hematocrit 46.8, Mean Corpuscular Volume 97, Mean Corpuscular Hemoglobin 32.2H, Mean Corpuscular Hemoglobin Concent 33.2, Red Cell Distribution Width 12.9, Platelet Count 177, Mean Platelet Volume 7.3, Neutrophils (%) (Auto) 56.9, Lymphocytes (%) (Auto) 26.7, Monocytes (%) (Auto) 8.7, Eosinophils (%) (Auto) 6.4H, Basophils (%) (Auto ) 1.3, Sodium Level 138, Potassium Level 4.0, Chloride Level 102, Carbon Dioxide Level 29, Anion Gap 7, Blood Urea Nitrogen 11, Creatinine 0.9, Estimat Glomerular Filtration Rate > 60, Glucose Level 80, Calcium Level 8.7 Height (Feet): 6 Height (Inches): 1.00 Weight (Pounds): 172 General Appearance: lethargic EENT: normal ENT inspection Neck: normal alignment Cardiovascular: normal peripheral pulses, normal rate, regular rhythm Respiratory/Chest: chest wall non-tender, lungs clear, normal breath sounds Abdomen: normal bowel sounds, non tender, soft Extremities: normal inspection Edema: no edema noted Arm (L), no edema noted Arm (R), no edema noted Leg (L), no edema noted Leg (R), no edema noted Pedal (L), no edema noted Pedal (R), no edema noted Generalized Neurologic: responsive, motor weakness Skin: normal pigmentation, warm/dry Marcel Nicole DO Apr 21, 2018 10:20
--- NOTE | 2018-04-21 11:26 | Cardiology Progress Note ---
Assessment/Plan Assessment/Plan 1. Atypical chest pain , high RANGEL score,will require to rule out obstructive CAD, lexiscan stress MPI is ordered. 2. Hx of CAD, s/p CABG, s/p PCI, continue DAPT, atrovastatin up to 80mg for LDL target <70mg%. 3. HX of HTN, presented with hypotension likely due to ENTRESTO, resolved, will monitor BP. 4. Dyslipidemia, on atorvastatin, LDL goal <70mg%. 5. Normal LV systolic function, paradoxical septal wall motion due to prior sternotomy. Subjective Subjective Sinus bradycardia at 46. Objective Last 24 Hour Vital Signs Date Time Temp Pulse Resp B/P (MAP) Pulse Ox O2 Delivery O2 Flow Rate FiO2 04/21/18 09:47 74 18 Room Air 04/21/18 09:09 70 124/60 04/21/18 08:00 51 04/21/18 08:00 97.5 77 20 126/60 95 Room Air 97.5 04/21/18 04:00 52 04/21/18 04:00 98.1 69 20 97/57 94 Room Air 98.1 04/21/18 00:00 98.1 58 20 122/69 98 Room Air 98.1 04/21/18 00:00 54 04/20/18 21:02 68 18 Room Air 04/20/18 20:41 53 110/63 04/20/18 20:00 53 04/20/18 20:00 97.5 61 20 110/63 99 Nasal Cannula 2.0 97.5 04/20/18 17:53 63 04/20/18 16:39 97.5 04/20/18 16:00 97.7 60 22 104/63 93 Nasal Cannula 2.0 97.7 04/20/18 12:00 53 04/20/18 12:00 97.5 55 20 92/52 98 Nasal Cannula 2.0 97.5 Intake and Output 04/20/18 04/21/18 19:00 07:00 Output Total 110 ml Balance -110 ml Output Urine Total 110 ml # Voids 2 # Bowel Movements 3 6 2D Echo: Septal wall HK due to cabg O/W ef ~50%, Grade I LVDD, nl RVSP Laboratory Tests Test 04/20/18 20:15 04/21/18 09:05 Troponin I 0.004 ng/mL (0.000-0.056) White Blood Count 6.8 K/UL (4.8-10.8) Red Blood Count 4.82 M/UL (4.70-6.10) Hemoglobin 15.5 G/DL (14.2-18.0) Hematocrit 46.8 % (42.0-52.0) Mean Corpuscular Volume 97 FL (80-99) Mean Corpuscular Hemoglobin 32.2 PG (27.0-31.0) H Mean Corpuscular Hemoglobin Concent 33.2 G/DL (32.0-36.0) Red Cell Distribution Width 12.9 % (11.6-14.8) Platelet Count 177 K/UL (150-450) Mean Platelet Volume 7.3 FL (6.5-10.1) Neutrophils (%) (Auto) 56.9 % (45.0-75.0) Lymphocytes (%) (Auto) 26.7 % (20.0-45.0) Monocytes (%) (Auto) 8.7 % (1.0-10.0) Eosinophils (%) (Auto) 6.4 % (0.0-3.0) H Basophils (%) (Auto) 1.3 % (0.0-2.0) Sodium Level 138 MMOL/L (136-145) Potassium Level 4.0 MMOL/L (3.5-5.1) Chloride Level 102 MMOL/L (98-107) Carbon Dioxide Level 29 MMOL/L (21-32) Anion Gap 7 mmol/L (5-15) Blood Urea Nitrogen 11 mg/dL (7-18) Creatinine 0.9 MG/DL (0.55-1.30) Estimat Glomerular Filtration Rate > 60 mL/min (>60) Glucose Level 80 MG/DL (74-106) Calcium Level 8.7 MG/DL (8.5-10.1) Microbiology Date/Time Source Procedure Growth Status 04/20/18 07:00 Nasal Nares MRSA Culture - Final NO METHICILLIN RESISTANT STAPH AUREUS... Complete Objective HEENT: PERRLA, EOMI, normocephalic NECK: Supple. No jugular venous distention. LUNGS: Clear except scattered rhonchi. CARDIAC: Regular rate and rhythm. No murmurs, gallops or rubs. ABDOMEN: Soft and nontender. Positive bowel sounds. No hepatosplenomegaly. EXTREMITIES: No clubbing, cyanosis or cyanosis. Henry Rubin MD Apr 21, 2018 11:26
--- NOTE | 2018-04-21 11:33 | Pulmonology Progress Note ---
Assessment/Plan Problems: (1) Acute chest pain (2) ACS (acute coronary syndrome) (3) COPD (chronic obstructive pulmonary disease) (4) CAD (coronary artery disease) (5) Hx of CABG Assessment/Plan lexiscan ordered all notes reviewed titrate cardiac meds respiratory treatment titrate fio2 to sat of 92% Subjective ROS Limited/Unobtainable: No Constitutional: Reports: no symptoms HEENT: Repors: no symptoms Respiratory: Reports: no symptoms Allergies: Coded Allergies: CHLORPROMAZINE (Verified Allergy, Mild, 04/19/18) HALOPERIDOL (Verified Allergy, Mild, 04/19/18) LIVER EXTRACT (Verified Allergy, Mild, 04/19/18) PENICILLINS (Unverified Allergy, Unknown, 08/05/16) Objective Last 24 Hour Vital Signs Date Time Temp Pulse Resp B/P (MAP) Pulse Ox O2 Delivery O2 Flow Rate FiO2 04/21/18 09:47 74 18 Room Air 04/21/18 09:09 70 124/60 04/21/18 08:00 51 04/21/18 08:00 97.5 77 20 126/60 95 Room Air 97.5 04/21/18 04:00 52 04/21/18 04:00 98.1 69 20 97/57 94 Room Air 98.1 04/21/18 00:00 98.1 58 20 122/69 98 Room Air 98.1 04/21/18 00:00 54 04/20/18 21:02 68 18 Room Air 04/20/18 20:41 53 110/63 04/20/18 20:00 53 04/20/18 20:00 97.5 61 20 110/63 99 Nasal Cannula 2.0 97.5 04/20/18 17:53 63 04/20/18 16:39 97.5 04/20/18 16:00 97.7 60 22 104/63 93 Nasal Cannula 2.0 97.7 04/20/18 12:00 53 04/20/18 12:00 97.5 55 20 92/52 98 Nasal Cannula 2.0 97.5 Intake and Output 04/20/18 04/21/18 19:00 07:00 Output Total 110 ml Balance -110 ml Output Urine Total 110 ml # Voids 2 # Bowel Movements 3 6 General Appearance: WD/WN HEENT: normocephalic, atraumatic Respiratory/Chest: chest wall non-tender, lungs clear Cardiovascular: normal peripheral pulses, normal rate Abdomen: normal bowel sounds, soft, non tender Genitourinary: normal external genitalia Extremities: no cyanosis Neurologic/Psychiatric: commercial artist II-XII grossly normal Lymphatic: no neck adenopathy Microbiology Date/Time Source Procedure Growth Status 04/20/18 07:00 Nasal Nares MRSA Culture - Final NO METHICILLIN RESISTANT STAPH AUREUS... Complete Laboratory Tests 04/20/18 20:15: Troponin I 0.004 04/21/18 09:05: White Blood Count 6.8, Red Blood Count 4.82, Hemoglobin 15.5, Hematocrit 46.8, Mean Corpuscular Volume 97, Mean Corpuscular Hemoglobin 32.2H, Mean Corpuscular Hemoglobin Concent 33.2, Red Cell Distribution Width 12.9, Platelet Count 177, Mean Platelet Volume 7.3, Neutrophils (%) (Auto) 56.9, Lymphocytes (%) (Auto) 26.7, Monocytes (%) (Auto) 8.7, Eosinophils (%) (Auto) 6.4H, Basophils (%) (Auto ) 1.3, Sodium Level 138, Potassium Level 4.0, Chloride Level 102, Carbon Dioxide Level 29, Anion Gap 7, Blood Urea Nitrogen 11, Creatinine 0.9, Estimat Glomerular Filtration Rate > 60, Glucose Level 80, Calcium Level 8.7 Current Medications Medications (Trade) Dose Ordered Sig/Michael Route PRN Reason Start Time Stop Time Status Last Admin Dose Admin Acetaminophen (Tylenol) 650 mg Q4H PRN ORAL FEVER 04/19/18 22:15 05/19/18 22:14 Albuterol/ Ipratropium (Albuterol/ Ipratropium) 3 ml EVERY 4 HOURS PRN HHN Shortness of Breath 04/19/18 22:15 04/24/18 22:14 Aspirin (ASA) 81 mg DAILY ORAL 04/22/18 09:00 05/22/18 08:59 UNV Atorvastatin Calcium (Lipitor) 80 mg DAILY ORAL 04/22/18 09:00 05/22/18 08:59 UNV Clopidogrel Bisulfate (Plavix) 75 mg DAILY ORAL 04/20/18 09:00 05/20/18 08:59 04/21/18 09:09 Diltiazem HCl (Cardizem) 10 mg EVERY HOUR PRN IV heart rate more than 120, 04/19/18 22:15 05/19/18 22:14 Enalaprilat (Vasotec) 2.5 mg EVERY 6 HOURS PRN IV sbp more than 160 04/19/18 22:15 05/19/18 22:14 Gabapentin (Neurontin) 300 mg TWICE A DAY ORAL 04/20/18 09:00 05/20/18 08:59 04/21/18 09:09 Heparin Sodium (Porcine) (Heparin 5000 units/ml) 5,000 units EVERY 12 HOURS SUBQ 04/20/18 09:00 05/20/18 08:59 04/20/18 20:54 Ketorolac Tromethamine (Toradol 30mg) 30 mg Q6HR PRN IV moderate pain ( 4-6) 04/19/18 22:15 04/24/18 22:14 Metoprolol Tartrate (Lopressor) 25 mg EVERY 12 HOURS ORAL 04/20/18 09:00 05/20/18 08:59 04/21/18 09:09 Morphine Sulfate (Morphine Sulfate) 2 mg Q4H PRN IVP severe pain scale 7-10 04/19/18 22:45 04/26/18 22:44 04/21/18 09:13 Nitroglycerin (Ntg) 0.4 mg Q5M PRN SL Prn Chest Pain 04/19/18 22:15 05/19/18 22:14 Ondansetron HCl (Zofran) 4 mg Q6H PRN IVP Nausea & Vomiting 04/19/18 22:15 05/19/18 22:14 Polyethylene Glycol (Miralax) 17 gm DAILYPRN PRN ORAL Constipation 04/19/18 22:15 05/19/18 22:14 Ranolazine (Ranexa ER 500mg) 500 mg Q12HR ORAL 04/20/18 21:00 05/20/18 20:59 04/21/18 09:09 Risperidone (RisperDAL) 2 mg BID ORAL 04/20/18 09:00 05/20/18 08:59 04/21/18 09:09 Temazepam (Restoril) 15 mg HSPRN PRN ORAL Insomnia 04/19/18 22:15 04/26/18 22:14 04/20/18 20:52 Terazosin HCl (Hytrin) 5 mg QHS ORAL 04/20/18 21:00 05/20/18 20:59 04/20/18 20:52 Donta Espinoza MD Apr 21, 2018 11:33
--- NOTE | 2018-04-21 11:41 | Cardiology Report ---
APPROVED REPORT EXAM: Two-dimensional and M-mode echocardiogram with Doppler and color Doppler. INDICATION Left Ventricular Function M-Mode DIMENSIONS IVSd1.4 (0.7-1.1cm)Left Atrium (MM)2.6 (1.6-4.0cm) LVDd5.2 (3.5-5.6cm)Aortic Root3.4 (2.0-3.7cm) PWd1.2 (0.7-1.1cm)Aortic Cusp Exc.2.0 (1.5-2.0cm) LVDs4.0 (2.5-4.0cm) PWs1.7 cm Technically difficult study due to poor acoustic windows. Study quality precludes accurate assessment of regional wall motion. Normal left ventricular chamber size. Posterior wall akinesia, ischemic cardiomyopathy cannot be ruled out, left ventricular ejection fraction estimated to be 50%. Mild left ventricular hypertrophy. No evidence of pericardial effusion. All other cardiac chamber sizes are within normal limits. Focal aortic valve sclerosis with adequate cusp excursion. Mildly thickened mitral valve leaflets with normal excursion. Mild mitral annulus and aortic root calcification. Pulmonic valve not visualized. Normal tricuspid valve structure. IVC is normal in size with physiological collapse. A color flow and spectral Doppler study was performed and revealed: Trace aortic insufficiency. Mild mitral regurgitation. Mitral diastolic velocities suggest mild left ventricular diastolic dysfunction (Grade I). No tricuspid regurgitation.
[2018-04-21 12:00] VITALS: BP 100/60
--- NOTE | 2018-04-21 12:15 | Cardiology Report ---
APPROVED REPORT EKG Measurement Heart [id number] Normal sinus rhythm Inferior infarct, age undetermined Abnormal ECG
--- NOTE | 2018-04-21 15:28 | Cardiology Progress Note ---
Assessment/Plan Assessment/Plan chest pain is atypical recent work up at [facility] and Recent coronary angiography,, recent PEt scan he has occluded OM and RCA, OM intervention failed his ECG was not changed from previous ECG and his troponin was negative.Suggest medical management. He is asking for morphine all the time. Subjective Subjective the patient is resting in bed, he has midsternal pain on and off releived only by MS Objective Last 24 Hour Vital Signs Date Time Temp Pulse Resp B/P (MAP) Pulse Ox O2 Delivery O2 Flow Rate FiO2 04/21/18 12:00 97.9 65 20 100/60 94 Room Air 97.9 04/21/18 12:00 47 04/21/18 09:47 74 18 Room Air 04/21/18 09:09 70 124/60 04/21/18 08:00 51 04/21/18 08:00 97.5 77 20 126/60 95 Room Air 97.5 04/21/18 04:00 52 04/21/18 04:00 98.1 69 20 97/57 94 Room Air 98.1 04/21/18 00:00 98.1 58 20 122/69 98 Room Air 98.1 04/21/18 00:00 54 04/20/18 21:02 68 18 Room Air 04/20/18 20:41 53 110/63 04/20/18 20:00 53 04/20/18 20:00 97.5 61 20 110/63 99 Nasal Cannula 2.0 97.5 04/20/18 17:53 63 04/20/18 16:39 97.5 04/20/18 16:00 97.7 60 22 104/63 93 Nasal Cannula 2.0 97.7 EENT: PERRL/EOMI Neck: supple Rhythm: NSR Cardiovascular: normal rate Respiratory/Chest: crackles/rales Abdomen: soft Extremities: non-tender Intake and Output 04/20/18 04/21/18 19:00 07:00 Output Total 110 ml Balance -110 ml Output Urine Total 110 ml # Voids 2 # Bowel Movements 3 6 Laboratory Tests Test 04/20/18 20:15 04/21/18 09:05 Troponin I 0.004 ng/mL (0.000-0.056) White Blood Count 6.8 K/UL (4.8-10.8) Red Blood Count 4.82 M/UL (4.70-6.10) Hemoglobin 15.5 G/DL (14.2-18.0) Hematocrit 46.8 % (42.0-52.0) Mean Corpuscular Volume 97 FL (80-99) Mean Corpuscular Hemoglobin 32.2 PG (27.0-31.0) H Mean Corpuscular Hemoglobin Concent 33.2 G/DL (32.0-36.0) Red Cell Distribution Width 12.9 % (11.6-14.8) Platelet Count 177 K/UL (150-450) Mean Platelet Volume 7.3 FL (6.5-10.1) Neutrophils (%) (Auto) 56.9 % (45.0-75.0) Lymphocytes (%) (Auto) 26.7 % (20.0-45.0) Monocytes (%) (Auto) 8.7 % (1.0-10.0) Eosinophils (%) (Auto) 6.4 % (0.0-3.0) H Basophils (%) (Auto) 1.3 % (0.0-2.0) Sodium Level 138 MMOL/L (136-145) Potassium Level 4.0 MMOL/L (3.5-5.1) Chloride Level 102 MMOL/L (98-107) Carbon Dioxide Level 29 MMOL/L (21-32) Anion Gap 7 mmol/L (5-15) Blood Urea Nitrogen 11 mg/dL (7-18) Creatinine 0.9 MG/DL (0.55-1.30) Estimat Glomerular Filtration Rate > 60 mL/min (>60) Glucose Level 80 MG/DL (74-106) Calcium Level 8.7 MG/DL (8.5-10.1) Microbiology Date/Time Source Procedure Growth Status 04/20/18 07:00 Nasal Nares MRSA Culture - Final NO METHICILLIN RESISTANT STAPH AUREUS... Complete Alyssa Connor MD Apr 21, 2018 15:27
[2018-04-21 16:00] VITALS: BP 104/62
[2018-04-21 20:00] VITALS: BP 112/57
--- NOTE | 2018-04-21 20:15 | Consultation ---
DATE OF CONSULTATION: 04/20/2018 CARDIOLOGY CONSULTATION CONSULTING PHYSICIAN: Henry Rubin M.D. REFERRING PHYSICIAN: Marcel Nicole D.O. REASON FOR CONSULTATION: Management of chest pain. HISTORY OF PRESENT ILLNESS: The patient is a very unfortunate 62-year-old gentleman with history of coronary artery disease, status post four-vessel coronary artery bypass graft surgery just about 20 years ago status post percutaneous coronary intervention x3, last one just about a few years ago at [facility] on aspirin therapy who started to feel very sharp and stabbing chest pain in the left precordial area, nonprovoked while watching TV. The intensity of the pain was 7/10. There was no associated shortness of breath, diaphoresis, nausea or vomiting. The patient presents to the hospital for evaluation and management of the above condition. Initial blood pressure was 85/52 mmHg, pulse of 62. A 12-lead electrocardiogram was significant for sinus rhythm, but no acute ischemic features. The patient was admitted to telemetry under the service of Dr. Nicole. Cardiology consultation was made at the request of Dr. Nicole. PAST MEDICAL HISTORY: 1. Four-vessel coronary artery bypass surgery status post PCI x3, last one a few years ago at [facility]. 2. History of hypertension. 3. History of seizure disorder. PAST SURGICAL HISTORY: PCI and coronary artery bypass graft surgery. MEDICATIONS: List of medications at home includes aspirin 81 mg p.o. daily, amlodipine 2.5 mg p.o. daily, atorvastatin 40 mg p.o. daily, citalopram 40 mg p.o. daily, Plavix 75 mg p.o. daily, gabapentin 300 mg twice daily, metoprolol 25 mg twice daily, omeprazole 20 mg p.o. twice daily, Risperdal 2 mg p.o. twice daily, and one tablet daily, and terazosin 5 mg p.o. at bedtime. ALLERGIES: To chlorpromazine, haloperidol, liver extract and penicillin. FAMILY HISTORY: No premature coronary artery disease in first-degree relatives. SOCIAL HISTORY: Forty-five pack-year tobacco use. He denies any alcohol or illicit drug use. REVIEW OF SYSTEMS: HEENT: Denies any headache, diplopia, or blurred vision. CONSTITUTIONAL: Denies any fever, chills, night sweats, or weight loss. CARDIOVASCULAR: Chest pain as mentioned above. Denies any dyspnea on exertion. Denies any PND, orthopnea, leg swelling, or syncope. PULMONARY: Denies any cough, hemoptysis, or wheezing. GASTROINTESTINAL: Denies any nausea, vomiting, diarrhea, constipation, abdominal pain, or GI bleed. GENITOURINARY: Denies any hematuria, dysuria, or incontinence. NEUROLOGY: Denies any motor dysfunction, sensory deficit, or altered speech. PHYSICAL EXAMINATION: GENERAL: The patient is a very pleasant, 62-year-old gentleman, in no apparent respiratory distress. Alert and oriented x4. VITAL SIGNS: Blood pressure at time of arrival to the hospital was 85/52, respirations 16, pulse of 62, temperature 98.2 degrees Fahrenheit, and O2 saturation 97% on room air. HEENT: Atraumatic and normocephalic. Anicteric. Pupils are equal, round, and reactive to light and accommodation. Extraocular muscles intact. NECK: JVP less than 5 cm. No carotid bruit. Carotid upstrokes 2+ bilaterally. CARDIOVASCULAR: Normal S1 and S2. Regular rate and rhythm. No murmurs, gallops, or rubs. PMI is at fourth intercostal space in the midclavicular line. LUNGS: Clear to auscultation bilaterally. ABDOMEN: Soft, nontender, and nondistended. No hepatosplenomegaly. Positive bowel sounds. EXTREMITIES: No evidence of edema, clubbing, or cyanosis. LABORATORY AND DIAGNOSTIC DATA: WBC was 8.4, hemoglobin 15.4, hematocrit of 45.3, and platelet count is 193. Sodium was 134, potassium is 4.0, chloride 99, bicarbonate 26, BUN of 16, creatinine 1.0, and glucose is 95. Calcium is 8.7. Troponin I x3 negative. ProBNP 167. INR is 1.0. Toxicology showed positive marijuana. Chest x-ray showed no acute cardiopulmonary disease. ASSESSMENT AND PLAN: The patient is a very unfortunate 62-year-old gentleman, seen in Cardiology consultation at request of Dr. Nicole. 1. Atypical chest pain, given the fact that the patient had coronary artery disease and coronary artery bypass graft surgery and history of hypertension would benefit from myocardial perfusion imaging study, which will be scheduled for Monday. A 12-lead electrocardiogram does not show any ischemic features, acute myocardial infarction is ruled out. We would like to obtain 2D echocardiography for assessment of LV systolic and diastolic function. 2. History of hypertension. Blood pressure at time of arrival to the hospital was low in fact, this could be secondary to that the patient has. I would like to address LV systolic function with 2D echocardiography. Diastolic data also showed light on the hemodynamics in this patient. 3. History of coronary artery disease, status post four-vessel coronary artery bypass graft surgery status post PCI in the past. Continue aspirin and clopidogrel and atorvastatin 40 mg. I would like to thank, Dr. Nicole, for allowing me to participate in care of this patient. Henry Rubin M.D. DR: LINDSAY JOB#: [id number] CC:
[2018-04-22] VITALS: BP 123/67
[2018-04-22 04:00] VITALS: BP 110/61
[2018-04-22 07:46] LABS: BASOPHILS % (AUTO) 1.1 % (0.0-2.0); EOSINOPHILS % (AUTO) 6.9 % (0.0-3.0); HEMATOCRIT 45.5 % (42.0-52.0); HEMOGLOBIN 15.2 G/DL (14.2-18.0); LYMPHOCYTES % (AUTO) 26.9 % (20.0-45.0); MEAN CORPUSCULAR VOLUME 97 FL (80-99); MONOCYTES % (AUTO) 8.6 % (1.0-10.0); NEUTROPHILS % (AUTO) 56.6 % (45.0-75.0); PLATELET COUNT 171 K/UL (150-450); RED BLOOD COUNT 4.72 M/UL (4.70-6.10); RED CELL DISTRIBUTION WIDTH 12.6 % (11.6-14.8); WHITE BLOOD COUNT 7.5 K/UL (4.8-10.8)
[2018-04-22 08:00] VITALS: BP 113/65
[2018-04-22 08:11] LABS: ANION GAP 9 mmol/L (5-15); BLOOD UREA NITROGEN 12 mg/dL (7-18); CALCIUM 8.4 MG/DL (8.5-10.1); CARBON DIOXIDE 24 MMOL/L (21-32); CHLORIDE 105 MMOL/L (98-107); CREATININE 0.9 MG/DL (0.55-1.30); POTASSIUM 4.3 MMOL/L (3.5-5.1); SODIUM 138 MMOL/L (136-145)
[2018-04-22] MEDS: Atorvastatin 80mg tab ORAL SCH (08:55)
[2018-04-22] MEDS: Aspirin Baby 81mg ORAL SCH (08:55)
[2018-04-22] MEDS: Ranolazine 500mg tab ORAL SCH ×2 (08:55→21:04)
[2018-04-22] MEDS: Metoprolol 25mg tab ORAL SCH ×2 (09:00→21:05)
[2018-04-22] MEDS: Heparin 5000 units/ml inj SUBQ SCH ×2 (09:00→21:00)
[2018-04-22] MEDS: Nitroglycerin Subl 0.4mg tab SL PRN ×3 (09:35→10:18)
--- NOTE | 2018-04-22 11:41 | General Progress Note ---
Assessment/Plan Problem List: (1) HTN (hypertension) ICD Codes: I10 - Essential (primary) hypertension SNOMED: 63288311 (2) ACS (acute coronary syndrome) ICD Codes: I24.9 - Acute ischemic heart disease, unspecified SNOMED: 137565994 (3) Anxiety ICD Codes: F41.9 - Anxiety disorder, unspecified SNOMED: 01749251 Status: stable, progressing Assessment/Plan o2 pulm tx pain control cardio f/u cbc bmp am dc plan w hh Subjective Constitutional: Reports: weakness Allergies: Coded Allergies: CHLORPROMAZINE (Verified Allergy, Mild, 04/19/18) HALOPERIDOL (Verified Allergy, Mild, 04/19/18) LIVER EXTRACT (Verified Allergy, Mild, 04/19/18) PENICILLINS (Unverified Allergy, Unknown, 08/05/16) All Systems: reviewed and negative except above Subjective sleepy calm in bed Objective Last 24 Hour Vital Signs Date Time Temp Pulse Resp B/P (MAP) Pulse Ox O2 Delivery O2 Flow Rate FiO2 04/22/18 10:18 115/67 04/22/18 10:07 113/65 04/22/18 09:35 113/65 04/22/18 09:00 57 04/22/18 08:52 79 20 Room Air 21 04/22/18 08:00 97.7 57 18 113/65 96 Room Air 97.7 04/22/18 08:00 60 04/22/18 04:37 70 20 Room Air 21 04/22/18 04:00 97.2 55 20 110/61 94 Room Air 97.2 04/22/18 04:00 49 04/22/18 00:00 97.5 52 20 123/67 96 Room Air 97.5 04/22/18 00:00 48 04/21/18 21:00 54 112/57 04/21/18 20:00 54 04/21/18 20:00 99.1 61 20 112/57 95 Room Air 99.1 04/21/18 16:00 98.1 62 20 104/62 98 Room Air 98.1 04/21/18 16:00 58 04/21/18 12:00 97.9 65 20 100/60 94 Room Air 97.9 04/21/18 12:00 47 Intake and Output 04/21/18 04/22/18 19:00 07:00 Intake Total 600 ml Balance 600 ml Intake Oral 600 ml # Voids 5 3 # Bowel Movements 4 3 Laboratory Tests 04/22/18 06:30: White Blood Count 7.5, Red Blood Count 4.72, Hemoglobin 15.2, Hematocrit 45.5, Mean Corpuscular Volume 97, Mean Corpuscular Hemoglobin 32.3H, Mean Corpuscular Hemoglobin Concent 33.5, Red Cell Distribution Width 12.6, Platelet Count 171, Mean Platelet Volume 7.6, Neutrophils (%) (Auto) 56.6, Lymphocytes (%) (Auto) 26.9, Monocytes (%) (Auto) 8.6, Eosinophils (%) (Auto) 6.9H, Basophils (%) (Auto ) 1.1, Sodium Level 138, Potassium Level 4.3, Chloride Level 105, Carbon Dioxide Level 24, Anion Gap 9, Blood Urea Nitrogen 12, Creatinine 0.9, Estimat Glomerular Filtration Rate > 60, Glucose Level 93, Calcium Level 8.4L Height (Feet): 6 Height (Inches): 1.00 Weight (Pounds): 172 General Appearance: alert EENT: normal ENT inspection Neck: normal alignment Cardiovascular: normal peripheral pulses, normal rate, regular rhythm Respiratory/Chest: chest wall non-tender, lungs clear, normal breath sounds Abdomen: normal bowel sounds, non tender, soft Extremities: normal inspection Edema: no edema noted Arm (L), no edema noted Arm (R), no edema noted Leg (L), no edema noted Leg (R), no edema noted Pedal (L), no edema noted Pedal (R), no edema noted Generalized Neurologic: responsive, motor weakness Skin: normal pigmentation, warm/dry Marcel Nicole DO Apr 22, 2018 11:41
[2018-04-22 12:00] VITALS: BP 119/69
--- NOTE | 2018-04-22 14:13 | Pulmonology Progress Note ---
Assessment/Plan Problems: (1) Acute chest pain (2) ACS (acute coronary syndrome) (3) COPD (chronic obstructive pulmonary disease) (4) CAD (coronary artery disease) (5) Hx of CABG Assessment/Plan no new complains BP, hear rate controlled lexiscan ordered all notes reviewed titrate cardiac meds respiratory treatment titrate fio2 to sat of 92% Subjective ROS Limited/Unobtainable: No Constitutional: Reports: no symptoms HEENT: Repors: no symptoms Respiratory: Reports: no symptoms Allergies: Coded Allergies: CHLORPROMAZINE (Verified Allergy, Mild, 04/19/18) HALOPERIDOL (Verified Allergy, Mild, 04/19/18) LIVER EXTRACT (Verified Allergy, Mild, 04/19/18) PENICILLINS (Unverified Allergy, Unknown, 08/05/16) Objective Last 24 Hour Vital Signs Date Time Temp Pulse Resp B/P (MAP) Pulse Ox O2 Delivery O2 Flow Rate FiO2 04/22/18 12:00 53 04/22/18 10:18 115/67 04/22/18 10:07 113/65 04/22/18 09:35 113/65 04/22/18 09:00 57 04/22/18 08:52 79 20 Room Air 21 04/22/18 08:00 97.7 57 18 113/65 96 Room Air 97.7 04/22/18 08:00 60 04/22/18 04:37 70 20 Room Air 21 04/22/18 04:00 97.2 55 20 110/61 94 Room Air 97.2 04/22/18 04:00 49 04/22/18 00:00 97.5 52 20 123/67 96 Room Air 97.5 04/22/18 00:00 48 04/21/18 21:00 54 112/57 04/21/18 20:00 54 04/21/18 20:00 99.1 61 20 112/57 95 Room Air 99.1 04/21/18 16:00 98.1 62 20 104/62 98 Room Air 98.1 04/21/18 16:00 58 Intake and Output 04/21/18 04/22/18 19:00 07:00 Intake Total 600 ml Balance 600 ml Intake Oral 600 ml # Voids 5 3 # Bowel Movements 4 3 General Appearance: WD/WN HEENT: normocephalic, atraumatic Respiratory/Chest: chest wall non-tender, lungs clear Cardiovascular: normal peripheral pulses, regular rhythm Genitourinary: normal external genitalia Extremities: no cyanosis Skin: no rash Microbiology Date/Time Source Procedure Growth Status 04/20/18 07:00 Nasal Nares MRSA Culture - Final NO METHICILLIN RESISTANT STAPH AUREUS... Complete 04/20/18 07:00 Rectum VRE Culture - Final NO VANCOMYCIN RESISTANT ENTEROCOCCUS ... Complete Laboratory Tests 04/22/18 06:30: White Blood Count 7.5, Red Blood Count 4.72, Hemoglobin 15.2, Hematocrit 45.5, Mean Corpuscular Volume 97, Mean Corpuscular Hemoglobin 32.3H, Mean Corpuscular Hemoglobin Concent 33.5, Red Cell Distribution Width 12.6, Platelet Count 171, Mean Platelet Volume 7.6, Neutrophils (%) (Auto) 56.6, Lymphocytes (%) (Auto) 26.9, Monocytes (%) (Auto) 8.6, Eosinophils (%) (Auto) 6.9H, Basophils (%) (Auto ) 1.1, Sodium Level 138, Potassium Level 4.3, Chloride Level 105, Carbon Dioxide Level 24, Anion Gap 9, Blood Urea Nitrogen 12, Creatinine 0.9, Estimat Glomerular Filtration Rate > 60, Glucose Level 93, Calcium Level 8.4L Current Medications Medications (Trade) Dose Ordered Sig/Michael Route PRN Reason Start Time Stop Time Status Last Admin Dose Admin Acetaminophen (Tylenol) 650 mg Q4H PRN ORAL FEVER 04/19/18 22:15 05/19/18 22:14 Albuterol/ Ipratropium (Albuterol/ Ipratropium) 3 ml EVERY 4 HOURS PRN HHN Shortness of Breath 04/19/18 22:15 04/24/18 22:14 Aspirin (ASA) 81 mg DAILY ORAL 04/22/18 09:00 05/22/18 08:59 04/22/18 08:55 Atorvastatin Calcium (Lipitor) 80 mg DAILY ORAL 04/22/18 09:00 05/22/18 08:59 04/22/18 08:55 Clopidogrel Bisulfate (Plavix) 75 mg DAILY ORAL 04/20/18 09:00 05/20/18 08:59 04/22/18 08:55 Diltiazem HCl (Cardizem) 10 mg EVERY HOUR PRN IV heart rate more than 120, 04/19/18 22:15 05/19/18 22:14 Enalaprilat (Vasotec) 2.5 mg EVERY 6 HOURS PRN IV sbp more than 160 04/19/18 22:15 05/19/18 22:14 Gabapentin (Neurontin) 300 mg TWICE A DAY ORAL 04/20/18 09:00 05/20/18 08:59 04/22/18 08:55 Heparin Sodium (Porcine) (Heparin 5000 units/ml) 5,000 units EVERY 12 HOURS SUBQ 04/20/18 09:00 05/20/18 08:59 04/22/18 09:00 Ketorolac Tromethamine (Toradol 30mg) 30 mg Q6HR PRN IV moderate pain ( 4-6) 04/19/18 22:15 04/24/18 22:14 Metoprolol Tartrate (Lopressor) 25 mg EVERY 12 HOURS ORAL 04/20/18 09:00 05/20/18 08:59 04/21/18 09:09 Morphine Sulfate (Morphine Sulfate) 2 mg Q4H PRN IVP severe pain scale 7-10 04/19/18 22:45 04/26/18 22:44 04/21/18 16:07 Nitroglycerin (Ntg) 0.4 mg Q5M PRN SL Prn Chest Pain 04/19/18 22:15 05/19/18 22:14 04/22/18 10:18 Ondansetron HCl (Zofran) 4 mg Q6H PRN IVP Nausea & Vomiting 04/19/18 22:15 05/19/18 22:14 Polyethylene Glycol (Miralax) 17 gm DAILYPRN PRN ORAL Constipation 04/19/18 22:15 05/19/18 22:14 Ranolazine (Ranexa ER 500mg) 500 mg Q12HR ORAL 04/20/18 21:00 05/20/18 20:59 04/22/18 08:55 Risperidone (RisperDAL) 2 mg BID ORAL 04/20/18 09:00 05/20/18 08:59 04/22/18 08:55 Temazepam (Restoril) 15 mg HSPRN PRN ORAL Insomnia 04/19/18 22:15 04/26/18 22:14 6/16/18 21:03 Terazosin HCl (Hytrin) 5 mg QHS ORAL 04/20/18 21:00 05/20/18 20:59 04/21/18 21:03 Donta Espinoza MD Apr 22, 2018 14:13
[2018-04-22 16:00] VITALS: BP 119/61
--- NOTE | 2018-04-22 19:13 | Cardiology Progress Note ---
Assessment/Plan Assessment/Plan 1. Atypical chest pain , high RANGEL score, awaiting lexiscan stress MPI in am. 2. Hx of CAD, s/p CABG, s/p PCI, continue DAPT and atorvastatin 80. 3. HX of HTN, presented with hypotension likely due to ENTRESTO, resolved. Order Pro-BNP. 4. Dyslipidemia, on atorvastatin, LDL goal <70mg%. 5. Normal LV systolic function, paradoxical septal wall motion due to prior sternotomy. Subjective Subjective Sinus rhythm at 64. Objective Last 24 Hour Vital Signs Date Time Temp Pulse Resp B/P (MAP) Pulse Ox O2 Delivery O2 Flow Rate FiO2 04/22/18 16:00 72 04/22/18 16:00 97.6 72 18 119/61 97 Room Air 97.6 04/22/18 12:00 53 04/22/18 12:00 97.6 56 18 119/69 96 Room Air 97.6 04/22/18 10:18 115/67 04/22/18 10:07 113/65 04/22/18 09:35 113/65 04/22/18 09:00 57 04/22/18 08:52 79 20 Room Air 21 04/22/18 08:00 97.7 57 18 113/65 96 Room Air 97.7 04/22/18 08:00 60 04/22/18 04:37 70 20 Room Air 21 04/22/18 04:00 97.2 55 20 110/61 94 Room Air 97.2 04/22/18 04:00 49 04/22/18 00:00 97.5 52 20 123/67 96 Room Air 97.5 04/22/18 00:00 48 04/21/18 21:00 54 112/57 04/21/18 20:00 54 04/21/18 20:00 99.1 61 20 112/57 95 Room Air 99.1 Intake and Output 04/21/18 04/22/18 19:00 07:00 Intake Total 600 ml Balance 600 ml Intake Oral 600 ml # Voids 5 3 # Bowel Movements 4 3 2D Echo: Septal wall HK due to cabg O/W ef ~50%, Grade I LVDD, nl RVSP Laboratory Tests Test 04/22/18 06:30 White Blood Count 7.5 K/UL (4.8-10.8) Red Blood Count 4.72 M/UL (4.70-6.10) Hemoglobin 15.2 G/DL (14.2-18.0) Hematocrit 45.5 % (42.0-52.0) Mean Corpuscular Volume 97 FL (80-99) Mean Corpuscular Hemoglobin 32.3 PG (27.0-31.0) H Mean Corpuscular Hemoglobin Concent 33.5 G/DL (32.0-36.0) Red Cell Distribution Width 12.6 % (11.6-14.8) Platelet Count 171 K/UL (150-450) Mean Platelet Volume 7.6 FL (6.5-10.1) Neutrophils (%) (Auto) 56.6 % (45.0-75.0) Lymphocytes (%) (Auto) 26.9 % (20.0-45.0) Monocytes (%) (Auto) 8.6 % (1.0-10.0) Eosinophils (%) (Auto) 6.9 % (0.0-3.0) H Basophils (%) (Auto) 1.1 % (0.0-2.0) Sodium Level 138 MMOL/L (136-145) Potassium Level 4.3 MMOL/L (3.5-5.1) Chloride Level 105 MMOL/L (98-107) Carbon Dioxide Level 24 MMOL/L (21-32) Anion Gap 9 mmol/L (5-15) Blood Urea Nitrogen 12 mg/dL (7-18) Creatinine 0.9 MG/DL (0.55-1.30) Estimat Glomerular Filtration Rate > 60 mL/min (>60) Glucose Level 93 MG/DL (74-106) Calcium Level 8.4 MG/DL (8.5-10.1) L Microbiology Date/Time Source Procedure Growth Status 04/20/18 07:00 Nasal Nares MRSA Culture - Final NO METHICILLIN RESISTANT STAPH AUREUS... Complete 04/20/18 07:00 Rectum VRE Culture - Final NO VANCOMYCIN RESISTANT ENTEROCOCCUS ... Complete Objective HEENT: PERRLA, EOMI, normocephalic NECK: Supple. No jugular venous distention. LUNGS: Clear except scattered rhonchi. CARDIAC: Regular rate and rhythm. No murmurs, gallops or rubs. ABDOMEN: Soft and nontender. Positive bowel sounds. No hepatosplenomegaly. EXTREMITIES: No clubbing, cyanosis or cyanosis. Henry Rubin MD Apr 22, 2018 19:13
[2018-04-22 20:00] VITALS: BP 126/69
[2018-04-23] VITALS: BP 114/68
[2018-04-23 04:00] VITALS: BP 105/68
[2018-04-23 08:00] VITALS: BP 123/74
[2018-04-23] MEDS: Heparin 5000 units/ml inj SUBQ SCH ×2 (09:00→20:45)
[2018-04-23] MEDS: Metoprolol 25mg tab ORAL SCH ×2 (09:00→20:42)
[2018-04-23] MEDS ORDERED: Lexiscan 0.4mg/5ml syringe IV PRN (09:00)
[2018-04-23] MEDS: Aspirin Baby 81mg ORAL SCH (09:05)
[2018-04-23] MEDS: Ranolazine 500mg tab ORAL SCH ×2 (09:05→20:42)
[2018-04-23] MEDS: Atorvastatin 80mg tab ORAL SCH (09:05)
--- NOTE | 2018-04-23 10:16 | Cardiology Progress Note ---
Assessment/Plan Assessment/Plan 1. Atypical chest pain , high RANGEL score, awaiting lexiscan stress MPI today, pending discharge. 2. Hx of CAD, s/p CABG, s/p PCI, continue DAPT and atorvastatin 80. 3. HX of HTN, presented with hypotension likely due to ENTRESTO, resolved. Order Pro-BNP. 4. Dyslipidemia, on atorvastatin, LDL goal <70mg%. 5. Normal LV systolic function, paradoxical septal wall motion due to prior sternotomy. Subjective Subjective Sinus bradycardia at 54. Denies chest pain or SOB. Objective Last 24 Hour Vital Signs Date Time Temp Pulse Resp B/P (MAP) Pulse Ox O2 Delivery O2 Flow Rate FiO2 04/23/18 09:00 54 123/74 04/23/18 08:00 54 04/23/18 08:00 97.5 59 17 123/74 97 Room Air 97.5 04/23/18 04:00 49 04/23/18 04:00 97.3 62 20 105/68 99 Room Air 97.3 04/23/18 00:00 99.0 83 20 114/68 100 Room Air 99.0 04/23/18 00:00 46 04/22/18 21:05 81 126/69 04/22/18 20:02 71 20 Room Air 21 04/22/18 20:00 99.6 81 20 126/69 97 Room Air 99.6 04/22/18 20:00 71 04/22/18 16:00 72 04/22/18 16:00 97.6 72 18 119/61 97 Room Air 97.6 04/22/18 12:00 53 04/22/18 12:00 97.6 56 18 119/69 96 Room Air 97.6 04/22/18 10:18 115/67 Intake and Output 04/22/18 04/23/18 19:00 07:00 Intake Total 480 ml 0 ml Balance 480 ml 0 ml Intake Oral 480 ml 0 ml # Voids 3 1 # Bowel Movements 3 4 2D Echo: Septal wall HK due to cabg O/W ef ~50%, Grade I LVDD, nl RVSP Objective HEENT: PERRLA, EOMI, normocephalic NECK: Supple. No jugular venous distention. LUNGS: Clear except scattered rhonchi. CARDIAC: Regular rate and rhythm. No murmurs, gallops or rubs. ABDOMEN: Soft and nontender. Positive bowel sounds. No hepatosplenomegaly. EXTREMITIES: No clubbing, cyanosis or cyanosis. Henry Rubin MD Apr 23, 2018 10:16
--- NOTE | 2018-04-23 10:38 | General Progress Note ---
Assessment/Plan Problem List: (1) HTN (hypertension) ICD Codes: I10 - Essential (primary) hypertension SNOMED: 28389714 (2) ACS (acute coronary syndrome) ICD Codes: I24.9 - Acute ischemic heart disease, unspecified SNOMED: 740797619 (3) Anxiety ICD Codes: F41.9 - Anxiety disorder, unspecified SNOMED: 85413787 Status: stable, progressing Assessment/Plan o2 pulm tx pain control cardio f/u cbc bmp am dc plan w hh Subjective Constitutional: Reports: weakness Allergies: Coded Allergies: CHLORPROMAZINE (Verified Allergy, Mild, 04/19/18) HALOPERIDOL (Verified Allergy, Mild, 04/19/18) LIVER EXTRACT (Verified Allergy, Mild, 04/19/18) PENICILLINS (Unverified Allergy, Unknown, 08/05/16) All Systems: reviewed and negative except above Subjective pending stress test calm in bed Objective Last 24 Hour Vital Signs Date Time Temp Pulse Resp B/P (MAP) Pulse Ox O2 Delivery O2 Flow Rate FiO2 04/23/18 09:00 54 123/74 04/23/18 08:00 54 04/23/18 08:00 97.5 59 17 123/74 97 Room Air 97.5 04/23/18 04:00 49 04/23/18 04:00 97.3 62 20 105/68 99 Room Air 97.3 04/23/18 00:00 99.0 83 20 114/68 100 Room Air 99.0 04/23/18 00:00 46 04/22/18 21:05 81 126/69 04/22/18 20:02 71 20 Room Air 21 04/22/18 20:00 99.6 81 20 126/69 97 Room Air 99.6 04/22/18 20:00 71 04/22/18 16:00 72 04/22/18 16:00 97.6 72 18 119/61 97 Room Air 97.6 04/22/18 12:00 53 04/22/18 12:00 97.6 56 18 119/69 96 Room Air 97.6 Intake and Output 04/22/18 04/23/18 19:00 07:00 Intake Total 480 ml 0 ml Balance 480 ml 0 ml Intake Oral 480 ml 0 ml # Voids 3 1 # Bowel Movements 3 4 Height (Feet): 6 Height (Inches): 1.00 Weight (Pounds): 172 General Appearance: alert EENT: normal ENT inspection Neck: normal alignment Cardiovascular: normal peripheral pulses, normal rate, regular rhythm Respiratory/Chest: chest wall non-tender, lungs clear, normal breath sounds Abdomen: normal bowel sounds, non tender, soft Extremities: normal inspection Edema: no edema noted Arm (L), no edema noted Arm (R), no edema noted Leg (L), no edema noted Leg (R), no edema noted Pedal (L), no edema noted Pedal (R), no edema noted Generalized Neurologic: responsive, motor weakness Skin: normal pigmentation, warm/dry Marcel Nicole DO Apr 23, 2018 10:38
[2018-04-23 12:00] VITALS: BP 139/77
--- NOTE | 2018-04-23 12:13 | Pulmonology Progress Note ---
Assessment/Plan Problems: (1) Acute chest pain (2) ACS (acute coronary syndrome) (3) COPD (chronic obstructive pulmonary disease) (4) CAD (coronary artery disease) (5) Hx of CABG Assessment/Plan no new complains BP, hear rate controlled lexiscan is being done all notes reviewed titrate cardiac meds respiratory treatment titrate fio2 to sat of 92% Subjective ROS Limited/Unobtainable: No Interval Events: no new complains, doing stress test Allergies: Coded Allergies: CHLORPROMAZINE (Verified Allergy, Mild, 04/19/18) HALOPERIDOL (Verified Allergy, Mild, 04/19/18) LIVER EXTRACT (Verified Allergy, Mild, 04/19/18) PENICILLINS (Unverified Allergy, Unknown, 08/05/16) Objective Last 24 Hour Vital Signs Date Time Temp Pulse Resp B/P (MAP) Pulse Ox O2 Delivery O2 Flow Rate FiO2 04/23/18 09:00 54 123/74 04/23/18 08:00 54 04/23/18 08:00 97.5 59 17 123/74 97 Room Air 97.5 04/23/18 04:00 49 04/23/18 04:00 97.3 62 20 105/68 99 Room Air 97.3 04/23/18 00:00 99.0 83 20 114/68 100 Room Air 99.0 04/23/18 00:00 46 04/22/18 21:05 81 126/69 04/22/18 20:02 71 20 Room Air 21 04/22/18 20:00 99.6 81 20 126/69 97 Room Air 99.6 04/22/18 20:00 71 04/22/18 16:00 72 04/22/18 16:00 97.6 72 18 119/61 97 Room Air 97.6 Intake and Output 04/22/18 04/23/18 19:00 07:00 Intake Total 480 ml 0 ml Balance 480 ml 0 ml Intake Oral 480 ml 0 ml # Voids 3 1 # Bowel Movements 3 4 General Appearance: WD/WN HEENT: normocephalic, atraumatic Respiratory/Chest: chest wall non-tender, lungs clear, normal breath sounds Abdomen: normal bowel sounds, soft, non tender, no organomegaly Laboratory Tests 04/23/18 11:00: White Blood Count [Pending], Red Blood Count [Pending], Hemoglobin [Pending], Hematocrit [Pending], Mean Corpuscular Volume [Pending], Mean Corpuscular Hemoglobin [Pending], Mean Corpuscular Hemoglobin Concent [Pending], Red Cell Distribution Width [Pending], Platelet Count [Pending], Mean Platelet Volume [ Pending], Neutrophils (%) (Auto) [Pending], Lymphocytes (%) (Auto) [Pending], Monocytes (%) (Auto) [Pending], Eosinophils (%) (Auto) [Pending], Basophils (%) (Auto) [Pending], Sodium Level [Pending], Potassium Level [Pending], Chloride Level [Pending], Carbon Dioxide Level [Pending], Blood Urea Nitrogen [Pending], Creatinine [Pending], Estimat Glomerular Filtration Rate [Pending], Glucose Level [Pending], Calcium Level [Pending] Current Medications Medications (Trade) Dose Ordered Sig/Michael Route PRN Reason Start Time Stop Time Status Last Admin Dose Admin Acetaminophen (Tylenol) 650 mg Q4H PRN ORAL FEVER 04/19/18 22:15 05/19/18 22:14 Albuterol/ Ipratropium (Albuterol/ Ipratropium) 3 ml EVERY 4 HOURS PRN HHN Shortness of Breath 04/19/18 22:15 04/24/18 22:14 Aspirin (ASA) 81 mg DAILY ORAL 04/22/18 09:00 05/22/18 08:59 04/23/18 09:05 Atorvastatin Calcium (Lipitor) 80 mg DAILY ORAL 04/22/18 09:00 05/22/18 08:59 04/23/18 09:05 Clopidogrel Bisulfate (Plavix) 75 mg DAILY ORAL 04/20/18 09:00 05/20/18 08:59 04/23/18 09:05 Diltiazem HCl (Cardizem) 10 mg EVERY HOUR PRN IV heart rate more than 120, 04/19/18 22:15 05/19/18 22:14 Enalaprilat (Vasotec) 2.5 mg EVERY 6 HOURS PRN IV sbp more than 160 04/19/18 22:15 05/19/18 22:14 Gabapentin (Neurontin) 300 mg TWICE A DAY ORAL 04/20/18 09:00 05/20/18 08:59 04/23/18 09:05 Heparin Sodium (Porcine) (Heparin 5000 units/ml) 5,000 units EVERY 12 HOURS SUBQ 04/20/18 09:00 05/20/18 08:59 04/22/18 09:00 Ketorolac Tromethamine (Toradol 30mg) 30 mg Q6HR PRN IV moderate pain ( 4-6) 04/19/18 22:15 04/24/18 22:14 Metoprolol Tartrate (Lopressor) 25 mg EVERY 12 HOURS ORAL 04/20/18 09:00 05/20/18 08:59 04/22/18 21:05 Morphine Sulfate (Morphine Sulfate) 2 mg Q4H PRN IVP severe pain scale 7-10 04/19/18 22:45 04/26/18 22:44 04/21/18 16:07 Nitroglycerin (Ntg) 0.4 mg Q5M PRN SL Prn Chest Pain 04/19/18 22:15 05/19/18 22:14 04/22/18 10:18 Ondansetron HCl (Zofran) 4 mg Q6H PRN IVP Nausea & Vomiting 04/19/18 22:15 05/19/18 22:14 Polyethylene Glycol (Miralax) 17 gm DAILYPRN PRN ORAL Constipation 04/19/18 22:15 05/19/18 22:14 Ranolazine (Ranexa ER 500mg) 500 mg Q12HR ORAL 04/20/18 21:00 05/20/18 20:59 04/23/18 09:05 Risperidone (RisperDAL) 2 mg BID ORAL 04/20/18 09:00 05/20/18 08:59 04/23/18 09:05 Temazepam (Restoril) 15 mg HSPRN PRN ORAL Insomnia 04/19/18 22:15 04/26/18 22:14 04/22/18 21:04 Terazosin HCl (Hytrin) 5 mg QHS ORAL 04/20/18 21:00 05/20/18 20:59 04/22/18 21:05 Donta Espinoza MD Apr 23, 2018 12:13
[2018-04-23 12:14] LABS: ANION GAP 7 mmol/L (5-15); BLOOD UREA NITROGEN 11 mg/dL (7-18); CALCIUM 8.5 MG/DL (8.5-10.1); CARBON DIOXIDE 25 MMOL/L (21-32); CHLORIDE 104 MMOL/L (98-107); CREATININE 0.8 MG/DL (0.55-1.30); POTASSIUM 4.1 MMOL/L (3.5-5.1); SODIUM 136 MMOL/L (136-145)
[2018-04-23 12:24] LABS: BASOPHILS % (AUTO) 0.9 % (0.0-2.0); EOSINOPHILS % (AUTO) 4.5 % (0.0-3.0); HEMATOCRIT 45.9 % (42.0-52.0); HEMOGLOBIN 15.4 G/DL (14.2-18.0); MEAN CORPUSCULAR VOLUME 96 FL (80-99); MONOCYTES % (AUTO) 8.7 % (1.0-10.0); NEUTROPHILS % (AUTO) 62.9 % (45.0-75.0); PLATELET COUNT 168 K/UL (150-450); RED BLOOD COUNT 4.77 M/UL (4.70-6.10); RED CELL DISTRIBUTION WIDTH 12.6 % (11.6-14.8)
[2018-04-23 16:00] VITALS: BP 125/69
[2018-04-23] MEDS: Morphine Sulfate 4mg/ml Inj IVP PRN (16:48)
[2018-04-23 20:00] VITALS: BP 108/63
[2018-04-24] VITALS: BP 127/64
[2018-04-24 04:00] VITALS: BP 113/63
[2018-04-24 07:55] VITALS: BP 120/74
[2018-04-24] MEDS: Ranolazine 500mg tab ORAL SCH (08:06)
[2018-04-24] MEDS: Metoprolol 25mg tab ORAL SCH (08:06)
[2018-04-24] MEDS: Aspirin Baby 81mg ORAL SCH (08:06)
[2018-04-24] MEDS: Atorvastatin 80mg tab ORAL SCH (08:06)
[2018-04-24] MEDS: Heparin 5000 units/ml inj SUBQ SCH (08:08)
[2018-04-24 08:49] LABS: BASOPHILS % (AUTO) 0.9 % (0.0-2.0); EOSINOPHILS % (AUTO) 5.3 % (0.0-3.0); HEMOGLOBIN 15.4 G/DL (14.2-18.0); LYMPHOCYTES % (AUTO) 21.2 % (20.0-45.0); MEAN CORPUSCULAR VOLUME 96 FL (80-99); MONOCYTES % (AUTO) 6.3 % (1.0-10.0); NEUTROPHILS % (AUTO) 66.3 % (45.0-75.0); PLATELET COUNT 166 K/UL (150-450); RED CELL DISTRIBUTION WIDTH 12.6 % (11.6-14.8); WHITE BLOOD COUNT 6.7 K/UL (4.8-10.8)
[2018-04-24 09:34] LABS: ANION GAP 7 mmol/L (5-15); BLOOD UREA NITROGEN 11 mg/dL (7-18); CALCIUM 8.3 MG/DL (8.5-10.1); CARBON DIOXIDE 25 MMOL/L (21-32); CHLORIDE 104 MMOL/L (98-107); CREATININE 0.9 MG/DL (0.55-1.30); POTASSIUM 3.8 MMOL/L (3.5-5.1); SODIUM 136 MMOL/L (136-145)
[2018-04-24] MEDS: Morphine Sulfate 4mg/ml Inj IVP PRN (09:37)
--- NOTE | 2018-04-24 10:36 | Diagnostic Imaging Report ---
Indications: Chest pain Technique: Single day single isotope protocol utilized. Initially, resting images obtained using IV administration 10.1 millicuries 99M technetium Myoview. Subsequently, patient underwent lexiscan stress testing. See cardiology report for details. During adenosine infusion, IV administration 32.2 mCi 99 M technetium Myoview. SPECT and planar images obtained. SPECT images gated to 8 phases of the cardiac cycle were also obtained, and reformatted into cine images for evaluation of ejection fraction. Comparison: none Findings: Cardiology report does not described presence or absence of symptoms during infusion. Per cardiology report, resting EKG demonstrates normal sinus rhythm. Imaging demonstrates a large fixed perfusion defect involving the inferior wall. No reversible perfusion defect demonstrated. The left ventricle is mildly dilated. Calculated post stress ejection fraction 62% Impression: Nonischemic clinical response to pharmacologic stress, per cardiology report Nonischemic electrocardiographic response to pharmacologic stress, per cardiology report Large fixed inferior wall perfusion defect, consistent with infarct. No evidence of ischemia, at level of stress achieved. Calculated post stress ejection fraction 62%
[2018-04-24 12:00] VITALS: BP 121/68
--- NOTE | 2018-04-24 12:01 | Pulmonology Progress Note ---
Assessment/Plan Problems: (1) Acute chest pain (2) ACS (acute coronary syndrome) (3) COPD (chronic obstructive pulmonary disease) (4) CAD (coronary artery disease) (5) Hx of CABG Assessment/Plan stress test noted, fixed old infarct no new complains BP, hear rate controlled lexiscan is being done all notes reviewed titrate cardiac meds dc home with outpatient management Subjective ROS Limited/Unobtainable: No Constitutional: Reports: no symptoms HEENT: Repors: no symptoms Respiratory: Reports: no symptoms Allergies: Coded Allergies: CHLORPROMAZINE (Verified Allergy, Mild, 04/19/18) HALOPERIDOL (Verified Allergy, Mild, 04/19/18) LIVER EXTRACT (Verified Allergy, Mild, 04/19/18) PENICILLINS (Unverified Allergy, Unknown, 08/05/16) Objective Last 24 Hour Vital Signs Date Time Temp Pulse Resp B/P (MAP) Pulse Ox O2 Delivery O2 Flow Rate FiO2 04/24/18 10:07 97.0 04/24/18 09:37 97.0 04/24/18 08:06 56 120/74 04/24/18 07:55 97.0 56 18 120/74 97 Room Air 97.0 04/24/18 07:39 49 04/24/18 07:14 68 20 Room Air 21 04/24/18 04:00 98.0 55 18 113/63 97 Room Air 98.0 04/24/18 03:57 48 04/24/18 00:00 97.8 54 18 127/64 97 Room Air 97.8 04/23/18 23:39 50 04/23/18 20:42 62 120/73 04/23/18 20:00 53 04/23/18 20:00 98.4 62 19 108/63 100 Room Air 98.4 04/23/18 19:11 70 20 Room Air 21 04/23/18 16:00 97.5 71 18 125/69 97 Room Air 97.5 04/23/18 16:00 50 Intake and Output 04/23/18 04/24/18 19:00 07:00 # Voids 3 4 # Bowel Movements 3 3 General Appearance: WD/WN HEENT: normocephalic, atraumatic Respiratory/Chest: chest wall non-tender, lungs clear Cardiovascular: normal peripheral pulses, normal rate Abdomen: normal bowel sounds, soft, non tender Extremities: no clubbing Neurologic/Psychiatric: solar energy specialist II-XII grossly normal Laboratory Tests 04/24/18 08:05: White Blood Count 6.7, Red Blood Count 4.80, Hemoglobin 15.4, Hematocrit 46.0, Mean Corpuscular Volume 96, Mean Corpuscular Hemoglobin 32.1H, Mean Corpuscular Hemoglobin Concent 33.5, Red Cell Distribution Width 12.6, Platelet Count 166, Mean Platelet Volume 7.1, Neutrophils (%) (Auto) 66.3, Lymphocytes (%) (Auto) 21.2, Monocytes (%) (Auto) 6.3, Eosinophils (%) (Auto) 5.3H, Basophils (%) (Auto ) 0.9, Sodium Level 136, Potassium Level 3.8, Chloride Level 104, Carbon Dioxide Level 25, Anion Gap 7, Blood Urea Nitrogen 11, Creatinine 0.9, Estimat Glomerular Filtration Rate > 60, Glucose Level 125H, Calcium Level 8.3L Current Medications Medications (Trade) Dose Ordered Sig/Michael Route PRN Reason Start Time Stop Time Status Last Admin Dose Admin Acetaminophen (Tylenol) 650 mg Q4H PRN ORAL FEVER 04/19/18 22:15 05/19/18 22:14 Albuterol/ Ipratropium (Albuterol/ Ipratropium) 3 ml EVERY 4 HOURS PRN HHN Shortness of Breath 04/19/18 22:15 04/24/18 22:14 Aspirin (ASA) 81 mg DAILY ORAL 04/22/18 09:00 05/22/18 08:59 04/24/18 08:06 Atorvastatin Calcium (Lipitor) 80 mg DAILY ORAL 04/22/18 09:00 05/22/18 08:59 04/24/18 08:06 Clopidogrel Bisulfate (Plavix) 75 mg DAILY ORAL 04/20/18 09:00 05/20/18 08:59 04/24/18 08:06 Diltiazem HCl (Cardizem) 10 mg EVERY HOUR PRN IV heart rate more than 120, 04/19/18 22:15 05/19/18 22:14 Enalaprilat (Vasotec) 2.5 mg EVERY 6 HOURS PRN IV sbp more than 160 04/19/18 22:15 05/19/18 22:14 Gabapentin (Neurontin) 300 mg TWICE A DAY ORAL 04/20/18 09:00 05/20/18 08:59 04/24/18 08:06 Heparin Sodium (Porcine) (Heparin 5000 units/ml) 5,000 units EVERY 12 HOURS SUBQ 04/20/18 09:00 05/20/18 08:59 04/23/18 20:45 Ketorolac Tromethamine (Toradol 30mg) 30 mg Q6HR PRN IV moderate pain ( 4-6) 04/19/18 22:15 04/24/18 22:14 Metoprolol Tartrate (Lopressor) 25 mg EVERY 12 HOURS ORAL 04/20/18 09:00 05/20/18 08:59 04/23/18 20:42 Morphine Sulfate (Morphine Sulfate) 2 mg Q4H PRN IVP severe pain scale 7-10 04/19/18 22:45 04/26/18 22:44 04/24/18 09:37 Nitroglycerin (Ntg) 0.4 mg Q5M PRN SL Prn Chest Pain 04/19/18 22:15 05/19/18 22:14 04/22/18 10:18 Ondansetron HCl (Zofran) 4 mg Q6H PRN IVP Nausea & Vomiting 04/19/18 22:15 05/19/18 22:14 Polyethylene Glycol (Miralax) 17 gm DAILYPRN PRN ORAL Constipation 04/19/18 22:15 05/19/18 22:14 Ranolazine (Ranexa ER 500mg) 500 mg Q12HR ORAL 04/20/18 21:00 05/20/18 20:59 04/24/18 08:06 Risperidone (RisperDAL) 2 mg BID ORAL 04/20/18 09:00 05/20/18 08:59 04/24/18 08:06 Temazepam (Restoril) 15 mg HSPRN PRN ORAL Insomnia 04/19/18 22:15 04/26/18 22:14 04/23/18 20:42 Terazosin HCl (Hytrin) 5 mg QHS ORAL 04/20/18 21:00 05/20/18 20:59 04/23/18 20:43 Donta Espinoza MD Apr 24, 2018 12:01
[2018-04-24] MEDS ORDERED: ACETAMINOPHEN325 M1 ORAL (14:22)
[2018-04-24] MEDS ORDERED: METOPROLOL SUCC25 MG ORAL (14:23)
[2018-04-24] MEDS ORDERED: MIRALAX17 G2 ORAL (14:23)
[2018-04-24] MEDS ORDERED: NITROGLYCERIN SL (14:23)
[2018-04-24] MEDS ORDERED: RISPERDAL2 MG ORAL (14:24)
[2018-04-24] MEDS ORDERED: RESTORIL15 MG ORAL (14:24)
--- NOTE | 2018-04-24 14:51 | General Progress Note ---
Assessment/Plan Problem List: (1) HTN (hypertension) ICD Codes: I10 - Essential (primary) hypertension SNOMED: 98234019 (2) ACS (acute coronary syndrome) ICD Codes: I24.9 - Acute ischemic heart disease, unspecified SNOMED: 755681742 (3) Anxiety ICD Codes: F41.9 - Anxiety disorder, unspecified SNOMED: 02537338 Status: stable, progressing Assessment/Plan o2 pulm tx pain control cardio f/u dc w hh Subjective Constitutional: Reports: weakness Allergies: Coded Allergies: CHLORPROMAZINE (Verified Allergy, Mild, 04/19/18) HALOPERIDOL (Verified Allergy, Mild, 04/19/18) LIVER EXTRACT (Verified Allergy, Mild, 04/19/18) PENICILLINS (Unverified Allergy, Unknown, 08/05/16) All Systems: reviewed and negative except above Subjective calm wants to go home Objective Last 24 Hour Vital Signs Date Time Temp Pulse Resp B/P (MAP) Pulse Ox O2 Delivery O2 Flow Rate FiO2 04/24/18 12:00 97.0 80 18 121/68 97 Room Air 97.0 04/24/18 11:32 57 04/24/18 10:07 97.0 04/24/18 09:37 97.0 04/24/18 08:06 56 120/74 04/24/18 07:55 97.0 56 18 120/74 97 Room Air 97.0 04/24/18 07:39 49 04/24/18 07:14 68 20 Room Air 21 04/24/18 04:00 98.0 55 18 113/63 97 Room Air 98.0 04/24/18 03:57 48 04/24/18 00:00 97.8 54 18 127/64 97 Room Air 97.8 04/23/18 23:39 50 04/23/18 20:42 62 120/73 04/23/18 20:00 53 04/23/18 20:00 98.4 62 19 108/63 100 Room Air 98.4 04/23/18 19:11 70 20 Room Air 21 04/23/18 16:00 97.5 71 18 125/69 97 Room Air 97.5 04/23/18 16:00 50 Intake and Output 04/23/18 04/24/18 19:00 07:00 # Voids 3 4 # Bowel Movements 3 3 Laboratory Tests 04/24/18 08:05: White Blood Count 6.7, Red Blood Count 4.80, Hemoglobin 15.4, Hematocrit 46.0, Mean Corpuscular Volume 96, Mean Corpuscular Hemoglobin 32.1H, Mean Corpuscular Hemoglobin Concent 33.5, Red Cell Distribution Width 12.6, Platelet Count 166, Mean Platelet Volume 7.1, Neutrophils (%) (Auto) 66.3, Lymphocytes (%) (Auto) 21.2, Monocytes (%) (Auto) 6.3, Eosinophils (%) (Auto) 5.3H, Basophils (%) (Auto ) 0.9, Sodium Level 136, Potassium Level 3.8, Chloride Level 104, Carbon Dioxide Level 25, Anion Gap 7, Blood Urea Nitrogen 11, Creatinine 0.9, Estimat Glomerular Filtration Rate > 60, Glucose Level 125H, Calcium Level 8.3L Height (Feet): 6 Height (Inches): 1.00 Weight (Pounds): 172 General Appearance: alert EENT: normal ENT inspection Neck: normal alignment Cardiovascular: normal peripheral pulses, normal rate, regular rhythm Respiratory/Chest: chest wall non-tender, lungs clear, normal breath sounds Abdomen: normal bowel sounds, non tender, soft Extremities: normal inspection Edema: no edema noted Arm (L), no edema noted Arm (R), no edema noted Leg (L), no edema noted Leg (R), no edema noted Pedal (L), no edema noted Pedal (R), no edema noted Generalized Neurologic: responsive, motor weakness Skin: normal pigmentation, warm/dry Marcel Nicole DO Apr 24, 2018 14:51
--- NOTE | 2018-04-25 01:00 | Consultation ---
DATE OF CONSULTATION: 04/24/2018 CARDIOLOGY CONSULTATION CONSULTING PHYSICIAN: Harvinder Kinney M.D. REQUESTING PHYSICIAN: Marcel Nicole D.O. HISTORY OF PRESENT ILLNESS: This male with a known history of coronary artery disease and recent coronary stenting presented to the emergency room several days ago with chest pain. Troponin levels were negative. The patient apparently had stent placement to obtuse marginal artery, subsequent medical management was followed. The patient had a stress test with perfusion imaging here yesterday and the study was notable for no reversible ischemia, but significant prior scar. PAST MEDICAL HISTORY: 1. Coronary artery disease, status post CABG and multiple coronary stents. 2. Hypertension. 3. Seizure disorder. MEDICATIONS: Reviewed. ALLERGIES: Notable allergies include penicillin, Haldol, and chlorpromazine. SOCIAL HISTORY: Active smoker, 50 pack year history. No alcohol or substance abuse. FAMILY HISTORY: Noncontributory. REVIEW OF SYSTEMS: Otherwise unremarkable. PHYSICAL EXAMINATION: VITAL SIGNS: Blood pressure 112/70, pulse 55, and respiratory rate 18. NECK: Supple. LUNGS: Clear. CARDIAC: Regular. Normal S1 and S2 with a fourth heart sound. ABDOMEN: Soft. EXTREMITIES: No edema. LABORATORY AND DIAGNOSTIC DATA: EKG with sinus rhythm and evidence of old anteroseptal and inferior infarction. IMPRESSION: 1. Ischemic heart disease. 2. No reversible ischemia. 3. Stabilized anginal pattern. 4. Recent coronary angiogram with attempt at PCI to the obtuse marginal. 5. Sinus bradycardia, on beta-blockers. PLAN: Decrease beta-cecilia dose. Continue anti-platelet therapy, p.r.n. nitroglycerin sublingual for chest pain. Discontinue Ranexa, but reconsider resumption if anginal frequency worsens. Statin therapy to LDL goal less than 70. Harvinder Kinney M.D. DR: KG JOB#: [id number] CC:
--- NOTE | 2018-04-25 08:10 | Discharge Summary ---
Discharge Summary Discharge Summary _ DATE OF ADMISSION: 04/19/2018 DATE OF DISCHARGE: 04/24/2018 REASON FOR ADMISSION: 62-year-old male with past medical history significant for hypertension, coronary artery disease, status post CABG ,status post PCI, hyperlipidemia, presented with complaint of midsternal chest pain started about 2 hours prior to arrival to ED. Patient apparently had a heart catheterization with angiogram about 2 years ago, but procedure was aborted since unable to open the arteries as per patient. Upon evaluation troponin was negative. Laboratory workup revealed no leukocytosis, stable hemoglobin and hematocrit. Pro BNP 167. Pulse oximetry was stable on room air. EKG revealed normal sinus rhythm, no acute ischemic changes. Chest x-ray revealed no acute cardiopulmonary disease Patient was admitted to telemetry floor with diagnosis of chest pain, rule out acute coronary syndrome, coronary artery disease, history of CABG,hypertension CONSULTANTS: staff sonographer Dr. Rubin, pulmonary Dr. Espinoza [place] [employer]SE: Patient admitted to telemetry floor. Serial troponin were negative. EKG revealed no acute ischemic changes. Patient was ruled out for acute PA. Thermograph Operator closely followed . Patient was on dual antiplatelet therapy with Aspirin and Plavix, nitroglycerin as needed and statin. Echocardiogram revealed normal left ventricular chamber size with left ventricular ejection fraction of 50% and mild left ventricular hypertrophy. No evidence of pericardial effusion. Patient had high RANGEL score and therefore stress test was ordered. Myocardial perfusion scan revealed nonischemic clinical response to pharmacological stress and nonischemic electrocardiographic response. Large fixed inferior wall perfusion defect consistent with infarct. No evidence of ischemia at the level of stress achieved. Calculated poststress ejection fraction 62%. Per staff sonographer, who personally reviewed ther results of stress, patient had ischemic heart disease with no reversible ischemia and stabilized anginal pattern. Thermograph Operator recommended continue dual antiplatelet therapy, nitroglycerin as needed and statin with goal to keep LDL below 70 ( current LDL 83 ). Renexa was discontinued but staff sonographer recommended to consider resumption if anginal frequency worsen in future. Supplemental oxygen provided as needed to keep pulse oximetry above 92%. Prior to discharge pulse oximetry stable on room air. DVT prophylaxis provided. Supportive care provided Bowel regimen instituted Patient clinically improved and was stable for discharge home with outpatient follow-up with primary care provider and staff sonographer FINAL DIAGNOSES: Atypical chest pain ( with high RANGEL score) Anginal pattern Ischemic heart disease (no reversible ischemia) Coronary artery disease History of CABG , status post PCI Hypertension Hyperlipidemia COPD DISCHARGE MEDICATIONS: See Medication Reconciliation list. DISCHARGE INSTRUCTIONS: Patient was discharged home. Next week with her primary care provider and staff sonographer. I have been assigned to dictate discharge summary for this account. I was not involved in the patient's management. Dionna Muhammad NP Apr 25, 2018 08:10
[2018-04-25] MEDS ORDERED: Metoprolol Succinate XL 25mg tab ORAL SCH (09:00)
== END 2018-04-24 15:19 | disposition home or self-care (01) | DRG 303 ==
LOC: EDBD 19:41 → EMR 20:21 → 2E 20:35 → EDBEDREQ 21:00
DX: I25.119 Atherosclerotic heart disease of native coronary artery with unspecified angina pectoris (principal); J44.9 Chronic obstructive pulmonary disease, unspecified; Z95.5 Presence of coronary angioplasty implant and graft; Z79.02 Long term (current) use of antithrombotics/antiplatelets; Z88.0 Allergy status to penicillin; Z88.8 Allergy status to other drugs, medicaments and biological substances; I10 Essential (primary) hypertension; Z95.1 Presence of aortocoronary bypass graft; E78.5 Hyperlipidemia, unspecified; I25.9 Chronic ischemic heart disease, unspecified; R07.89 Other chest pain; F17.200 Nicotine dependence, unspecified, uncomplicated; R00.1 Bradycardia, unspecified; F41.9 Anxiety disorder, unspecified
CPT/HCPCS: 36415; 71045; 78452; 80048; 80053; 80061; 80307; 82550; 82553; 83690; 83880; 84443; 84484; 85025; 85610; 85730; 86140; 87081; 93005; 93017; 93306; 94664; 99285; J2405